=== PATIENT | female | born 1950 | race Caucasian/White ===

== ENCOUNTER → 2023-11-19 08:06 | Outpatient (REF) | payer OTHER, SELFPAY ==
[2023-11-19 08:48] LABS: % Basophils 0.8 % (0-2); % Eosinophils 2.5 % (0-6); % Immature Granulocytes 0.3 % (0-0.5); % Lymphocytes 24.8 % (20.5-51.1); % Monocytes 8.2 % (1.7-9.3); % Neutrophils 63.4 % (42.2-75.2); Absolute Eosinophils 0.1 10^3/uL (0-0.7); Absolute Lymphocytes 0.9 10^3/uL (1.2-3.4); Absolute Monocytes 0.3 10^3/uL (0.1-0.6); Absolute Neutrophils 2.3 10^3/uL (1.4-6.5); Hematocrit 40.8 % (37.0-47.0); Hemoglobin 14.2 g/dL (12.0-16.0); Mean Corp Hgb Conc. 34.8 g/dL (33.0-37.0); Mean Corpuscular Hgb 32.1 pg (27.0-31.0); Mean Corpuscular Volume 92.3 fL (81.0-99.0); Mean Platelet Volume 9.6 fL (7.4-10.4); Nucleated Red Blood Cells % 0 %; Platelet Count 190 10^3/uL (130-400); Red Blood Cell Count 4.42 10^6/uL (4.20-5.40); Red Cell Dist. Width 11.9 % (11.5-14.5); White Blood Cell Count 3.6 10^3/uL (4.8-10.8)
[2023-11-19 09:54] LABS: ALT (SGPT) 16 U/L (0-35); AST (SGOT) 34 U/L (14-36); Albumin 4.1 g/dl (3.5-5.0); Alkaline Phosphatase 96 U/L (38-126); Blood Urea Nitrogen 15 mg/dl (7-17); Calcium 9.1 mg/dl (8.4-10.2); Carbon Dioxide 34 mmol/L (22-30); Chloride 97 mmol/L (98-107); Glucose 95 mg/dl (70-99); HDL Cholesterol 64 mg/dl; LDL Cholesterol, Calculated 32 mg/dl; Potassium 3.6 mmol/L (3.5-5.1); Sodium 132 mmol/L (135-145); Total Bilirubin 0.8 mg/dl (0.2-1.3); Total Cholesterol 109 mg/dl (50-199); Total Protein 6.2 g/dl (6.3-8.2); Triglyceride 66 mg/dl (10-149); Very Low Density Lipoprotein 13 mg/dl (0-30); eGFR > 60.00
[2023-11-19 10:55] LABS: TSH Reflex To Free T4 1.32 uIU/ml (0.47-4.68)
== END ==
LOC: REG 08:06
PROVIDERS: ATTENDING PHYSICIAN Physician Assistant
DX: M81.0 Age-related osteoporosis without current pathological fracture (principal); R09.89 Other specified symptoms and signs involving the circulatory and respiratory systems; E78.00 Pure hypercholesterolemia, unspecified; R01.1 Cardiac murmur, unspecified; Z86.73 Personal history of transient ischemic attack (TIA), and cerebral infarction without residual deficits
CPT/HCPCS: 36415; 80053; 80061; 84443; 85025

== ENCOUNTER → 2023-12-17 11:23 | Outpatient (REF) | payer OTHER, SELFPAY ==
[2023-12-17 12:22] LABS: ALT (SGPT) 17 U/L (0-35); AST (SGOT) 36 U/L (14-36); Albumin 4.3 g/dl (3.5-5.0); Alkaline Phosphatase 92 U/L (38-126); Blood Urea Nitrogen 15 mg/dl (7-17); Calcium 9.1 mg/dl (8.4-10.2); Carbon Dioxide 30 mmol/L (22-30); Chloride 95 mmol/L (98-107); Glucose 83 mg/dl (70-99); Potassium 4.6 mmol/L (3.5-5.1); Sodium 129 mmol/L (135-145); Total Bilirubin 0.8 mg/dl (0.2-1.3); Total Protein 6.5 g/dl (6.3-8.2); eGFR > 60.00
== END ==
LOC: REG 11:23
PROVIDERS: ATTENDING PHYSICIAN Physician Assistant
DX: E87.1 Hypo-osmolality and hyponatremia (principal)
CPT/HCPCS: 36415; 80053

== ENCOUNTER → 2024-02-04 14:13 | Outpatient (REF) | payer OTHER, SELFPAY ==
[2024-02-04 15:49] LABS: ALT (SGPT) 14 U/L (0-35); AST (SGOT) 32 U/L (14-36); Alkaline Phosphatase 93 U/L (38-126); Blood Urea Nitrogen 17 mg/dl (7-17); Calcium 9.3 mg/dl (8.4-10.2); Carbon Dioxide 32 mmol/L (22-30); Chloride 97 mmol/L (98-107); Glucose 71 mg/dl (70-99); Sodium 135 mmol/L (135-145); Total Bilirubin 0.6 mg/dl (0.2-1.3); Total Protein 6.1 g/dl (6.3-8.2); eGFR > 60.00
== END ==
LOC: REG 14:13
PROVIDERS: ATTENDING PHYSICIAN Physician Assistant; REFERRING PHYSICIAN Internal Medicine Cardiovascular Disease
DX: E87.1 Hypo-osmolality and hyponatremia (principal)
CPT/HCPCS: 36415; 80053

== ENCOUNTER → 2024-02-20 11:32 | Outpatient (REF) | payer OTHER, SELFPAY ==
[2024-02-20 12:54] LABS: Blood Urea Nitrogen 18 mg/dl (7-17); Calcium 9.3 mg/dl (8.4-10.2); Carbon Dioxide 33 mmol/L (22-30); Chloride 99 mmol/L (98-107); Glucose 85 mg/dl (70-99); Potassium 3.9 mmol/L (3.5-5.1); Sodium 137 mmol/L (135-145); eGFR > 60.00
== END ==
LOC: REG 11:32
PROVIDERS: ATTENDING PHYSICIAN Internal Medicine Cardiovascular Disease; FAMILY PHYSICIAN Physician Assistant
DX: I10 Essential (primary) hypertension (principal)
CPT/HCPCS: 36415; 80048

== ENCOUNTER → 2024-06-15 09:04 | Outpatient (REF) | payer OTHER, SELFPAY | LOC: RCS 09:04 | PROVIDERS: ATTENDING PHYSICIAN Internal Medicine Cardiovascular Disease; FAMILY PHYSICIAN Physician Assistant | DX: I35.0 Nonrheumatic aortic (valve) stenosis (principal) | CPT/HCPCS: 93306 ==

== ENCOUNTER → 2024-10-27 06:49 | Outpatient (REF) | payer OTHER, SELFPAY ==
[2024-10-27 07:57] LABS: % Basophils 0.5 % (0-2); % Eosinophils 2.5 % (0-6); % Immature Granulocytes 0.3 % (0-0.5); % Lymphocytes 23.2 % (20.5-51.1); % Neutrophils 64.5 % (42.2-75.2); Absolute Eosinophils 0.1 10^3/uL (0-0.7); Absolute Lymphocytes 0.9 10^3/uL (1.2-3.4); Absolute Monocytes 0.3 10^3/uL (0.1-0.6); Absolute Neutrophils 2.4 10^3/uL (1.4-6.5); Hematocrit 43.2 % (37.0-47.0); Hemoglobin 14.6 g/dL (12.0-16.0); Mean Corp Hgb Conc. 33.8 g/dL (33.0-37.0); Mean Corpuscular Hgb 31.7 pg (27.0-31.0); Mean Corpuscular Volume 93.9 fL (81.0-99.0); Nucleated Red Blood Cells % 0 %; Platelet Count 165 10^3/uL (130-400); Red Cell Dist. Width 12.2 % (11.5-14.5); White Blood Cell Count 3.7 10^3/uL (4.8-10.8)
[2024-10-27 08:31] LABS: ALT (SGPT) 17 U/L (0-35); AST (SGOT) 33 U/L (14-36); Albumin 4.2 g/dl (3.5-5.0); Alkaline Phosphatase 96 U/L (38-126); Blood Urea Nitrogen 15 mg/dl (7-17); Calcium 9.2 mg/dl (8.4-10.2); Carbon Dioxide 35 mmol/L (22-30); Chloride 96 mmol/L (98-107); Glucose 94 mg/dl (70-99); HDL Cholesterol 60 mg/dl; LDL Cholesterol, Calculated 38 mg/dl; Potassium 3.9 mmol/L (3.5-5.1); Sodium 139 mmol/L (135-145); Total Bilirubin 0.8 mg/dl (0.2-1.3); Total Cholesterol 113 mg/dl (50-199); Total Protein 6.4 g/dl (6.3-8.2); Triglyceride 75 mg/dl (10-149); Very Low Density Lipoprotein 15 mg/dl (0-30); eGFR > 60.00
[2024-10-29 13:48] LABS: Lipoprotein a (Lp a) 27 mg/dL (<=29)
== END ==
LOC: REG 06:49
PROVIDERS: ATTENDING PHYSICIAN Physician Assistant; OTHER PHYSICIAN Internal Medicine Cardiovascular Disease
DX: Z86.73 Personal history of transient ischemic attack (TIA), and cerebral infarction without residual deficits (principal); E78.00 Pure hypercholesterolemia, unspecified; I10 Essential (primary) hypertension; I35.0 Nonrheumatic aortic (valve) stenosis; R26.89 Other abnormalities of gait and mobility
CPT/HCPCS: 36415; 80053; 80061; 83695; 85025

== ENCOUNTER → 2024-11-17 13:59 | Outpatient (REF) | payer OTHER, SELFPAY | LOC: WDC 13:59 | PROVIDERS: ATTENDING PHYSICIAN Physician Assistant | DX: Z12.31 Encounter for screening mammogram for malignant neoplasm of breast (principal) | CPT/HCPCS: 77063; 77067 ==

== ENCOUNTER 2025-02-09 10:03 | Outpatient (RCR) | payer OTHER, SELFPAY | END 2025-02-09 23:59 | disposition home or self-care (01) | LOC: RPT 10:03 | PROVIDERS: ATTENDING PHYSICIAN Physician Assistant | DX: R26.89 Other abnormalities of gait and mobility (principal); Z73.6 Limitation of activities due to disability | CPT/HCPCS: 97110; 97162 ==

== ENCOUNTER 2025-02-23 10:02 | Outpatient (RCR) | payer OTHER, SELFPAY | END 2025-02-23 23:59 | disposition home or self-care (01) | LOC: RPT 10:02 | PROVIDERS: ATTENDING PHYSICIAN Physician Assistant | DX: R26.89 Other abnormalities of gait and mobility (principal); Z73.6 Limitation of activities due to disability | CPT/HCPCS: 97110 ==

== ENCOUNTER → 2025-03-18 15:52 | Outpatient (REF) | payer OTHER, SELFPAY ==
[2025-03-18 16:50] LABS: Blood Urea Nitrogen 19 mg/dl (7-17); Calcium 9.3 mg/dl (8.4-10.2); Carbon Dioxide 31 mmol/L (22-30); Chloride 100 mmol/L (98-107); Glucose 99 mg/dl (70-99); Potassium 4.2 mmol/L (3.5-5.1); Sodium 135 mmol/L (135-145); eGFR > 60.00
[2025-03-18 16:59] LABS: NT-proBNP 558 pg/ml
== END ==
LOC: REG 15:52
PROVIDERS: ATTENDING PHYSICIAN Internal Medicine Cardiovascular Disease; FAMILY PHYSICIAN Physician Assistant
DX: I35.0 Nonrheumatic aortic (valve) stenosis (principal); I10 Essential (primary) hypertension
CPT/HCPCS: 80048; 83880

== ENCOUNTER → 2025-06-27 09:44 | Outpatient (REF) | payer OTHER, SELFPAY | LOC: RCS 09:44 | PROVIDERS: ATTENDING PHYSICIAN Internal Medicine Cardiovascular Disease; FAMILY PHYSICIAN Physician Assistant | DX: I35.0 Nonrheumatic aortic (valve) stenosis (principal) | CPT/HCPCS: 93306 ==

== ENCOUNTER → 2025-08-12 10:42 | Outpatient (REF) | payer OTHER, SELFPAY ==
[2025-08-12 12:18] LABS: Hematocrit 41.5 % (37.0-47.0); Hemoglobin 13.7 g/dL (12.0-16.0); Mean Corp Hgb Conc. 33.0 g/dL (33.0-37.0); Mean Corpuscular Volume 94.1 fL (81.0-99.0); Nucleated Red Blood Cells % 0 %; Platelet Count 188 10^3/uL (130-400); Red Cell Dist. Width 12.6 % (11.5-14.5)
[2025-08-12 13:26] LABS: ALT (SGPT) 16 U/L (0-35); AST (SGOT) 28 U/L (14-36); Albumin 4.4 g/dl (3.5-5.0); Alkaline Phosphatase 101 U/L (38-126); Blood Urea Nitrogen 13 mg/dl (7-17); Calcium 9.2 mg/dl (8.4-10.2); Carbon Dioxide 34 mmol/L (22-30); Chloride 97 mmol/L (98-107); Glucose 75 mg/dl (70-99); Potassium 4.4 mmol/L (3.5-5.1); Sodium 136 mmol/L (135-145); Total Protein 7.0 g/dl (6.3-8.2); eGFR > 60.00
== END ==
LOC: REG 10:42
PROVIDERS: ATTENDING PHYSICIAN Internal Medicine Cardiovascular Disease; FAMILY PHYSICIAN Physician Assistant
DX: I10 Essential (primary) hypertension (principal)
CPT/HCPCS: 36415; 80053; 85025

== ENCOUNTER 2025-08-26 07:05 | Day surgery (SDC) | payer OTHER, SELFPAY ==
--- NOTE | 2025-08-25 10:16 | CONSULT.STRU ---
Consultation
-
Date/Time Consultation Requested: 08/26/2025
Date/Time Consultation Performed: 08/26/2025
Requesting Provider: Aroldo Roman MD
Performing Provider: Deann Mary DNP, CRNP
Reason for Consultation: /TAVR
Patient History
Physicians
Family Physician: La Almendarez PA-c
Outpatient Travel Rn: Junior Frank MD
Primary Travel Rn: Junior Frank MD
History of Present Illness
Ms. Petit is a very pleasant 75 yof with a past medical history significant for aortic stenosis, CVA, HTN, and hypercholesterolemia, ocular migraines. Her echocardiogram from 06/27/2025 is notable for EF 63%, AV P/M 84/50, DI 0.2, GEORGINA 0.85, trace
AI, trace MR, mild posterior valve prolapse, mild TR, PAP 29.. From a symptomatology standpoint, patient describes GALLO and fatigue. Discussed the pathophysiology and treatment options of aortic stenosis including SAVR and TAVR, Explained the
evaluation process comprising of lab work, CT scan, CT surgical consult, dental clearance, and a heart team discussion. TAVR booklet, contact information, prescriptions, and appointments given to patient. Allowed for and answered questions at
bedside.
Past Medical History
Past Medical History: CVA/TIA, Hypercholesterolemia, Valvular Disease (aortic stenosis) and Other (osteopenia, fx (L) hip, fx (R) humerus, ocular migraines)
Past Surgical History
Past Surgical History: Orthopedic ((L)THR)
Dental History
Dr. Parks
Family History
Mother: Cause of (stroke)
Father: Cause of (cancer)
Family Medical History: Cancer
Social History
Alcohol: Occasional
Drug: None
Tobacco: Non-Smoker
Personal:
Living: With Spouse
Allergies
Allergy/AdvReac Type Severity Reaction Status Date / Time
Iodinated Contrast Media Allergy Hives Verified 06/08/23 12:07
LOBSTER Allergy RASH ON Uncoded 06/08/23 09:30
HANDS/CONTACT
DERMATITIS
Home Medications
�Medication �Instructions �Recorded �Confirmed �Type
hydrochlorothiazide 12.5 mg tablet 12.5 mg PO Q48H Fluid 06/08/23 06/08/23 History
Retention/Swelling
aspirin 81 mg chewable tablet 81 mg PO DAILY #30 tabs 06/09/23 Rx
atorvastatin 20 mg tablet 20 mg PO QPM #30 tabs 06/09/23 Rx
clopidogrel 75 mg tablet 75 mg PO DAILY #19 tabs 06/09/23 Rx
STS%
STS %: 3.16
Review of Systems
-
History Source: Patient
General: Reports Fatigue
HEENT: Reports No Symptoms
Respiratory: Reports GLALO
Cardiac: Reports No Symptoms
Abdomen/GI: Reports No Symptoms
: Reports No Symptoms
Musculoskeletal: Reports No Symptoms
Skin: Reports No Symptoms
Neurological: Reports No Symptoms
Vascular: Reports No Symptoms
Physical Exam
Labs
08/12/2025
HH: 13.7/41.5
WBC: 3.9
Plt: 188K
Bun/Cr: 13/0.6
GFR>60
Diagnostic Studies
Echocardiogram 06/27/2025
SUMMARY
1. Left ventricular ejection fraction is normal with an ejection fraction of 63 % by Valenzuela's biplane method of discs.
2. Calcified trileaflet aortic valve with decreased leaflet excursion. Severe aortic stenosis. dimensionless index of 0.2. Mean pressure gradient of 50 mmHg and aortic valve area 0.85/cm² using LVOT diameter of 2.3 cm. Trace aortic insufficiency.
3. Mild concentric left ventricular hypertrophy.
Procedure Type:�Isolated AVR
Perioperative Outcome Estimate %
Operative Mortality 3.16%
Morbidity & Mortality 10.2%
Stroke 1.53%
Renal Failure 1.3%
Reoperation 4.21%
Prolonged Ventilation 4.58%
Deep Sternal Wound Infection 0.036%
Long Hospital Stay (>14 days) 5.48%
Short Hospital Stay (<6 days)* 36.2%
Exam
General: Well Developed, Well Nourished and No Apparent Distress
HEENT: Normocephalic
Respiratory: Clear
Cardiac: Murmur (III/ BEATA)
GI: Soft, Non Tender and Non Distended
Rectal: Deferred by Provider
Skin: Warm and Dry
Neuro: Awake, Alert, Oriented and AO x 3
Psych: Calm
Assessment / Plan
-
Aortic Stenosis
Continue with TAVR evaluation
Trend creatinine after contrast administration
TAVR CT scan (premedicate for contrast allergy, Rx given w/ refills)
CT surgical consult
Frailty testing and KCCQ12 at consult
Continue aspirin
Dental clearance
Heart team discussion
Data Reviewed
-
Gauge And Weigh Machine Adjuster: Report Reviewed by me and Discussed with Physician
Echo: Report Reviewed by me and Discussed with Physician
Labs: Labs Reviewed by me
Old Records: Reviewed
Critical Care Time (in minutes): 45
[2025-08-26] VITALS (12 sets, daily range): BP systolic 96–163; BP diastolic 54–96; BMI 23.8
[2025-08-26 09:16] LABS: ACT-LR - POC 247 Seconds (116-155)
[2025-08-26] MEDS: NSS 1000 IV (10:15)
--- NOTE | 2025-08-26 18:46 | ITS.CL.CATH ---
Ingot Buggy Operator - Catheterization
Cardiac Catheterization
Procedure Report:
LEFT HEART CATHETERIZATION
Date of Procedure: August 26, 2025
Referring: Dr. Junior Frank
PROCEDURES:
1. Coronary angiography
2. Hemodynamic assessment of LAD with a Laurel Omni wire with the iFR serially measuring below the ischemic threshold at 0.76, 0.76, and 0.77. The Omni wire normalized to a Pd/Pa of 1.0 back at the guide catheter
INDICATION: Symptomatic aortic stenosis and decline in functional capacity
NOTE: The patient reports an allergy to iodine contrast but during the procedure stated that anaphylaxis occurred with IV gadolinium during an MRI. Not sure if she has true iodine allergy
ACCESS: Right radial artery, 6 German sheath
HEMODYNAMICS : (mmHg)
AO (s/d) : 120/74, 94
CORONARY FINDINGS
DOMINANCE: Right
LEFT MAIN: Normal
LEFT ANTERIOR DESCENDIN% ostial LAD and 50% mid LAD beyond the first diagonal branch. The remainder of the LAD has minor irregularities. Hemodynamic assessment of the LAD was undertaken with a Laurel Omni wire. The IFR in the LAD measured
serially below the ischemic threshold at 0.76, 0.76, and 0.77 with normalization back at the guide catheter with a Pd/Pa of 1.0 confirming no baseline draft
CIRCUMFLEX: The circumflex is a large-caliber nondominant vessel supplying 2 obtuse marginal branches. Minor irregularities are present
RIGHT CORONARY ARTERY: Normal
HEMODYNAMIC ASSESSMENT OF THE LAD WITH A VOLCANO OMNI WIRE: The origin of the left main was cannulated with a 6 Fr JL 4 guide catheter. Intravenous heparin was administered and the ACT was followed during the procedure. Two hundred micrograms of
intracoronary nitroglycerin was given through the guide catheter. A Laurel Omni wire was advanced to the guide catheter tip and normalized to guide catheter pressure. The Omni wire was then carefully manipulated across the stenosis at the ostium
of the LAD and in the mid LAD. Surprisingly, the iFR serially measured below the ischemic threshold at 0.76, 0.76, and 0.77. A slow pullback was performed and the most significant portion of the step up occurred in the mid LAD near the origin of
the diagonal branch, however, a step-up was also noted at the ostium of the LAD. The iFR in the left main was 1.0 as was the Pd/Pa
SEDATION: 42 minutes of procedural sedation was utilized. An independent medical doctor nuclear medicine was present to assist with and help manage the patient's level of consciousness and physiologic status.
RADIATION SUMMARY: Fluoro Time (min): 11.4, Dose (mGy): 279, DAP (Gy.cm2) : 19.6
Closure Device: TR band
CONCLUSIONS
1. Known severe aortic stenosis
2. Ostial and mid LAD stenoses were shown to be hemodynamically significant with the iFR serially measuring well below the ischemic threshold at 0.76, 0.76, and 0.77.
RECOMMENDATIONS
1. CT chest and follow-up with Dr. Edmond as scheduled to discuss treatment options
Copy to: Dr. Junior Frank
== END 2025-08-26 14:20 | disposition home or self-care (01) ==
LOC: CATH 07:05
PROVIDERS: ATTENDING PHYSICIAN Internal Medicine Interventional Cardiology; FAMILY PHYSICIAN Physician Assistant; OTHER PHYSICIAN Internal Medicine Cardiovascular Disease
DX: I35.2 Nonrheumatic aortic (valve) stenosis with insufficiency (principal); Z91.041 Radiographic dye allergy status; E78.00 Pure hypercholesterolemia, unspecified; I11.9 Hypertensive heart disease without heart failure; M85.80 Other specified disorders of bone density and structure, unspecified site; Z79.02 Long term (current) use of antithrombotics/antiplatelets; Z80.9 Family history of malignant neoplasm, unspecified; Z82.3 Family history of stroke; Z86.73 Personal history of transient ischemic attack (TIA), and cerebral infarction without residual deficits; Z91.013 Allergy to seafood; Z79.82 Long term (current) use of aspirin
CPT/HCPCS: 93799; 99152; 99153; 93454; C1769; C1894; Q9967

== ENCOUNTER → 2025-08-31 11:20 | Outpatient (REF) | payer OTHER, SELFPAY ==
[2025-08-31 13:34] LABS: Blood Urea Nitrogen 14 mg/dl (7-17); Calcium 9.1 mg/dl (8.4-10.2); Carbon Dioxide 34 mmol/L (22-30); Chloride 97 mmol/L (98-107); Glucose 85 mg/dl (70-99); Potassium 3.6 mmol/L (3.5-5.1); Sodium 133 mmol/L (135-145); eGFR > 60.00
== END ==
LOC: REG 11:20
PROVIDERS: ATTENDING PHYSICIAN Nurse Practitioner Acute Care
DX: I35.0 Nonrheumatic aortic (valve) stenosis (principal)
CPT/HCPCS: 36415; 80048

== ENCOUNTER → 2025-09-05 09:29 | Outpatient (REF) | payer OTHER, SELFPAY | LOC: RAD 09:29 | PROVIDERS: ATTENDING PHYSICIAN Nurse Practitioner Acute Care | DX: I35.0 Nonrheumatic aortic (valve) stenosis (principal) | CPT/HCPCS: 74174; 75572; Q9967 ==

== ENCOUNTER 2025-09-30 04:58 | Inpatient (IN) | payer OTHER, SELFPAY ==
[2025-09-20 12:18] VITALS: BMI 23.9
[2025-09-20 13:09] LABS: Hematocrit 40.0 % (37.0-47.0); Hemoglobin 13.5 g/dL (12.0-16.0); Mean Corp Hgb Conc. 33.8 g/dL (33.0-37.0); Mean Corpuscular Volume 93.7 fL (81.0-99.0); Nucleated Red Blood Cells % 0 %; Platelet Count 182 10^3/uL (130-400); Red Cell Dist. Width 12.8 % (11.5-14.5)
[2025-09-20 13:30] LABS: INR 1.00; PT 13.3 Sec (11.4-14.6)
[2025-09-20 13:35] LABS: ALT (SGPT) 14 U/L (0-35); AST (SGOT) 27 U/L (14-36); Albumin 4.3 g/dl (3.5-5.0); Alkaline Phosphatase 99 U/L (38-126); Blood Urea Nitrogen 14 mg/dl (7-17); Calcium 9.0 mg/dl (8.4-10.2); Chloride 98 mmol/L (98-107); Estimated Creatinine Clearance 69 ml/min; Glucose 79 mg/dl (70-99); Potassium 3.5 mmol/L (3.5-5.1); Sodium 135 mmol/L (135-145); Total Protein 6.5 g/dl (6.3-8.2); eGFR > 60.00
[2025-09-20 13:40] LABS: Carbon Dioxide 33 mmol/L (22-30)
[2025-09-20 13:46] LABS: Glycohemoglobin (HgbA1c) 5.7 % (4.0-5.9)
[2025-09-20 13:49] LABS: Urine Character Clear (Clear)
[2025-09-20 14:13] LABS: Urine Squamous Cell 0-2 /LPF (Few); Urine White Cell 0-2 /HPF (0-5)
--- NOTE | 2025-09-20 14:18 | CM ---
Spoke with patient in PATs. We discussed pre-op CABG/AVR teaching including sternal and driving restrictions. Previously independent at baseline, lives with in 2 story home, 1 step to enter. She has a single point cane and a rolling walker
at home but does not use them. She has the CT surgery education book, soap, and instructions. She is agreeable to a follow up visit from the CT transitional care nurses following DC. CM role explained and all questions answered. Plan for CABG/AVR on
09/30/25.
[2025-09-30] VITALS (14 sets, daily range): BP systolic 76–156; BP diastolic 52–87; BMI 23.9
[2025-09-30] MEDS: PROTONIX 40 MG PO (05:35)
[2025-09-30] MEDS: LOPRESSOR 25 MG PO (05:35)
[2025-09-30] MEDS: MAGNESIUM OXIDE 400 MG PO (05:35)
[2025-09-30] MEDS: BACTROBAN 2% OINTMENT 1 APPLIC NASAL ×2 (05:36→20:13)
--- NOTE | 2025-09-30 05:47 | PTCARENOTE ---
Patient admitted to CVICU. Patient confirmed 2 CHG showers and NPO since midnight. Admission questions asked. Med rec performed. Patient clipped and washed w/ CHG. Medications administered per HARSHIL Brunson. Patient oriented to room and
questions encouraged. Awaiting CVOR.
--- NOTE | 2025-09-30 06:35 | W.CVOR.SURPR ---
CVOR Surgeon Immed Pre Op
-
I have examined this patient prior to performance of the scheduled procedure.
The patient's condition is unchanged from the time of the dictated/written History and
Physical and the patient is able to undergo the scheduled procedure.
[2025-09-30 08:01] LABS: ACT+ - POC 126 Seconds (82-134)
[2025-09-30 08:30] LABS: Urine Character Clear (Clear)
--- NOTE | 2025-09-30 09:10 | CM ---
pt in OR today, cm to follow.
[2025-09-30 10:14] LABS: B.E. - POC 1.5 mmol/L; Glucose - POC 100 mg/dl (70-99); HCO3 - POC 26 mmol/L (21-28); Hematocrit - POC 28 % PCV (37-47); Hemodilution- POC No; Hemoglobin Calculated - POC 9.6; Ionized Calcium - POC 1.09 mmol/L (1.15-1.33); Lactate - POC < 0.30 mmol/L (0.36-0.75); O2 Saturation %Calculated-POC 99.9 % (94-98); PCO2 - POC 41 mmHg (35-48); PO2 - POC 262 mmHg (83-108); POC Comment PRE; Potassium - POC 2.9 mmol/L (3.5-5.1); Sodium - POC 142 mmol/L (136-145); Specimen Type - POC Arterial; pH - POC 7.42 (7.35-7.45)
[2025-09-30 10:15] LABS: ACT+ - POC > 1003 Seconds (82-134)
[2025-09-30 10:25] LABS: B.E. - POC 8.3 mmol/L; Glucose - POC 103 mg/dl (70-99); HCO3 - POC 30 mmol/L (21-28); Hematocrit - POC 25 % PCV (37-47); Hemodilution- POC Yes; Hemoglobin Calculated - POC 8.4; Ionized Calcium - POC 0.91 mmol/L (1.15-1.33); Lactate - POC 0.86 mmol/L (0.36-0.75); O2 Saturation %Calculated-POC 100.0 % (94-98); PCO2 - POC 32 mmHg (35-48); PO2 - POC 457 mmHg (83-108); POC Comment CPB; Potassium - POC 3.1 mmol/L (3.5-5.1); Sodium - POC 138 mmol/L (136-145); Specimen Type - POC Arterial; pH - POC 7.59 (7.35-7.45)
[2025-09-30 10:56] LABS: B.E. - POC 5.3 mmol/L; Glucose - POC 114 mg/dl (70-99); HCO3 - POC 28 mmol/L (21-28); Hematocrit - POC 26 % PCV (37-47); Hemodilution- POC Yes; Hemoglobin Calculated - POC 8.8; Ionized Calcium - POC 0.92 mmol/L (1.15-1.33); Lactate - POC 1.47 mmol/L (0.36-0.75); O2 Saturation %Calculated-POC 99.9 % (94-98); PCO2 - POC 30 mmHg (35-48); PO2 - POC 248 mmHg (83-108); POC Comment CPB; Potassium - POC 3.2 mmol/L (3.5-5.1); Sodium - POC 141 mmol/L (136-145); Specimen Type - POC Arterial; pH - POC 7.57 (7.35-7.45)
[2025-09-30 11:07] LABS: ACT+ - POC > 1003 Seconds (82-134)
[2025-09-30 11:07] LABS: ACT+ - POC > 1003 Seconds (82-134)
[2025-09-30 11:26] LABS: B.E. - POC 4.1 mmol/L; Glucose - POC 122 mg/dl (70-99); HCO3 - POC 28 mmol/L (21-28); Hematocrit - POC 25 % PCV (37-47); Hemodilution- POC Yes; Hemoglobin Calculated - POC 8.5; Ionized Calcium - POC 0.90 mmol/L (1.15-1.33); Lactate - POC 1.79 mmol/L (0.36-0.75); O2 Saturation %Calculated-POC 99.9 % (94-98); PCO2 - POC 37 mmHg (35-48); PO2 - POC 263 mmHg (83-108); POC Comment CPB; Potassium - POC 4.2 mmol/L (3.5-5.1); Sodium - POC 140 mmol/L (136-145); Specimen Type - POC Arterial; pH - POC 7.49 (7.35-7.45)
[2025-09-30 11:54] LABS: B.E. - POC 3.7 mmol/L; Glucose - POC 133 mg/dl (70-99); HCO3 - POC 28 mmol/L (21-28); Hematocrit - POC 26 % PCV (37-47); Hemodilution- POC Yes; Hemoglobin Calculated - POC 8.8; Ionized Calcium - POC 0.98 mmol/L (1.15-1.33); Lactate - POC 1.86 mmol/L (0.36-0.75); O2 Saturation %Calculated-POC 99.9 % (94-98); PCO2 - POC 41 mmHg (35-48); PO2 - POC 267 mmHg (83-108); POC Comment CPB; Potassium - POC 3.3 mmol/L (3.5-5.1); Sodium - POC 143 mmol/L (136-145); Specimen Type - POC Arterial; pH - POC 7.44 (7.35-7.45)
[2025-09-30 12:13] LABS: ACT+ - POC 1004 Seconds (82-134)
[2025-09-30 12:20] LABS: B.E. - POC 4.2 mmol/L; Glucose - POC 133 mg/dl (70-99); HCO3 - POC 28 mmol/L (21-28); Hematocrit - POC 25 % PCV (37-47); Hemodilution- POC Yes; Hemoglobin Calculated - POC 8.6; Ionized Calcium - POC 0.95 mmol/L (1.15-1.33); Lactate - POC 1.85 mmol/L (0.36-0.75); O2 Saturation %Calculated-POC 99.9 % (94-98); PCO2 - POC 36 mmHg (35-48); PO2 - POC 296 mmHg (83-108); POC Comment WARM; Potassium - POC 3.3 mmol/L (3.5-5.1); Sodium - POC 144 mmol/L (136-145); Specimen Type - POC Arterial; pH - POC 7.50 (7.35-7.45)
[2025-09-30 12:31] LABS: ACT+ - POC 657 Seconds (82-134)
[2025-09-30 12:52] LABS: ACT+ - POC > 1003 Seconds (82-134)
[2025-09-30 12:52] LABS: ACT+ - POC > 1003 Seconds (82-134)
[2025-09-30 13:00] LABS: B.E. - POC 2.6 mmol/L; Glucose - POC 136 mg/dl (70-99); HCO3 - POC 26 mmol/L (21-28); Hematocrit - POC 25 % PCV (37-47); Hemodilution- POC Yes; Hemoglobin Calculated - POC 8.6; Ionized Calcium - POC 0.90 mmol/L (1.15-1.33); Lactate - POC 2.15 mmol/L (0.36-0.75); O2 Saturation %Calculated-POC 99.9 % (94-98); PCO2 - POC 34 mmHg (35-48); PO2 - POC 250 mmHg (83-108); Potassium - POC 3.4 mmol/L (3.5-5.1); Sodium - POC 143 mmol/L (136-145); Specimen Type - POC Arterial; pH - POC 7.49 (7.35-7.45)
[2025-09-30 13:04] LABS: ACT+ - POC 131 Seconds (82-134)
--- NOTE | 2025-09-30 13:44 | W.IMMPOSTOP ---
Addendum entered and electronically signed by Michael Edmond MD 09/30/25 15:50:
[id number]
Original Note:
Surgical Immed Post Op Note
-
CARDIAC SURGERY OPERATIVE NOTE:
Preoperative Dx:
Severe aortic stenosis (P/M: 84.3/50.0, GEORGINA 0.85, Trace AI)
Single vessel CAD (LAD)
Postoperative Dx:
Same
Functional bicuspid (RCC/NCC fusion) AV w/ very bulky leaflet and annular calcifications
Procedures:
1) Median sternotomy
2) Takedown of ANGIE (narrow pedicle)
3) CABG x 1 (ANGIE to LAD)
4) ELAA (35mm AtriClip)
5) AVR (#25 Inspiris Resilia)
Surgeon:
Michael Edmond M.D.
Assistants:
Mabel Llanes P.A.-C.; physicians assistant throughout
Nicolás Resendiz PCt.-C.; [id number] sternotomy closure
Anesthesia:
Kris Monique M.D. and Percy RosasN.A.
Perfusion:
Jennifer Stern C.C.P.; XC: 122min, CPB 165min
Findings:
ANGIE was a healthy conduit w/ brisk blood flows, there was minor increased wall thickness and slight friability (ELD 2.75)
LAD was visible on the epicardial surface, normal masters at midpoint anastomosis (ELD 3.25) - anastomosis redo x 1 2' to ANGIE intimal tear at toe (tear resected; re-anastomosis w/o incident)
SHEA was small w/ 'windsock' morphology - successfully occluded at base w/ 35mm AtriClip - confirmed on postop ARMIN
AV was functionally bicuspid w/ complete RCC and NCC fusion (Seivers TYPE 1). There were profoundly bulky calcifications on all leaflets w/ a large bar of calcium extending along the fused commissure. These calcifications extended to the annulus
circumferentially. I was pleased w/ the annular appearance after complete debridement. LM and RM coronary arteries w/ annular height similar to preoperative imaging.
#25 Inspiris Resilia AVR placed w/ 15 interrupted, pledgetted valve sutures & CorKnots
Post-ARMIN: Normal LVEF @ 60-65 w/ significant LVH and small cavity size, normal RV function. Well-seated AVR w/ mean gradient 4mmHg; trace PVL only noted on transgastric view. SHEA confirmed excluded
Transfusions:
1U PRBC
Complications:
Pt. currently pacer dependent - baseline HR NSR in 50s
Implants:
Wright Inspiris Resilia 25mm MODEL [id number], SN: [id number]
AtiCure, AtriClip 35mm,
Epicardial bi-polar V-wire x 1
Epicardial A-wires x 2 (sutured)
CT x 4 (B/L pleural, inferior mediastinal, superior mediastinal)
Sternal 'X' plate w/ 8 - 12mm screws
Sternal 'Square' place w/ 4 - 10mm screws
Condition:
70 A-V paced, 126/48, 33/19, CVP 13.
GTTS: dobutamine 3, levophed 5, precedex 0.5, insulin 0.5
Stable/guarded to CVICU
CTs w/ scant drainage intraoperatively (M: 0, P: 5)
--- NOTE | 2025-09-30 13:53 | CON.INTV ---
Consultation
Consultation Request
Date/Time Consultation Requested: 09/30/2025
Date/Time Consultation Performed: 09/30/2025
Medical History
-
Chief Complaint: Dyspnea
History of Present Illness:
Patient is a 75-year-old female with known history of aortic stenosis who recently had an echocardiogram with severe aortic stenosis as well as coronary artery disease on left heart catheterization. Patient was subsequently referred to Cardio
thoracic surgery for further recommendations. Surgical aortic valve replacement and coronary artery bypass graft was advised. Postprocedure, patient was admitted to CVICU and youth manager consultation was requested for further input.
Past Medical History
Migraine headaches
Moderate aortic stenosis
CVA 2022
Past Surgical History: Reports Other
Additional Past Surgical History:
Left total hip replacement -March 2018
Social History
Tobacco: Non-smoker
Alcohol: None
Drug: None
Personal:
Living: With Family
Family History
Family History: Other (Mother had a stroke at the age of 77)
Allergies / Home Medications
Allergies
Allergy/AdvReac Type Severity Reaction Status Date / Time
Iodinated Contrast Media Allergy Severe ANAPHYLAXIS/DIFFICULTY Verified 09/16/25 09:22
SWALLOWING/EXCESS
SALIVA/ORAL
TREMORS
lobster Allergy RASH ON Verified 09/29/25 08:09
HANDS/CONTACT
DERMATITIS
Home Medications
�Medication �Instructions �Recorded �Confirmed �Last Taken �Type
aspirin 81 mg chewable tablet 81 mg PO DAILY #30 tabs 06/09/23 09/30/25 09/29/25 08:00 Rx
atorvastatin 20 mg tablet 20 mg PO QPM #30 tabs 06/09/23 09/30/25 09/29/25 19:00 Rx
furosemide 20 mg tablet 20 mg PO .PRN/20MG-40MG DAILY PRN 08/26/25 09/30/25 09/29/25 08:00 History
EDEMA/FLUID RETENTION
Review of Systems
-
Unable to Obtain full review of systems at this time due to: Patient Intubation
Vitals / Labs / Diagnostic Testing
Vital Signs
Temp Pulse Resp BP Pulse Ox
97.5 F 65 16 147/83 99
09/30/25 05:23 09/30/25 05:35 09/30/25 05:23 09/30/25 05:35 09/30/25 05:23
Lab Data
09/20/25 12:28
09/20/25 12:28
Diagnostic Testing:
Physical Exam
-
HEENT: Normocephalic
Cardiovascular: S1/S2
Respiratory: Clear
GI: Soft and Non Distended
Neurology: Other (Sedated)
Skin: Warm
General: Comfortable
Assessment
-
Patient is a 75 y/o female with severe aortic stenosis, S/p SAVR, CABG and ELAA, POD # 0
Titrate off pressors per protocol, MAP of 105, currently dobutamine infusing at 3, Levophed at 1.
ECHO reviewed with normal function
PA catheter readings reviewed, , mean of 19.
Management of chest tubes per primary service, no airleak noted
Intubated/sedated, initiate SAT when able, Precedex currently infusing
Pain control
RASS goal of 0 to -1
Intubated for procedure, SBT trial when patient able to spontaneously breath
Current vent settings: SIMV, 450/16/40%/5, pressure support of 5.
AB.46/35/171
CXR with mild left lower lobe atelectasis
Extubate per protocol
Maintain supplement oxygen as needed
Prior history of biapical pleuroparenchymal scarring and stable pulmonary nodules
Prior PFTs reviewed, unremarkable
Can add nebulizers if needed
Aspiration precautions
Encouraged incentive spirometry, OOB/ambulation/early mobility
Advance diet as tolerated following extubation
GI prophylaxis: Protonix
Monitor critical I/O's
Perry/chest tube output
Hb/platelets postoperatively, mild drift
Trend CBC for now
Can transfuse if indicated for Hb <7, plt <50 in surgical patients
DVT prophylaxis including SCDs
Insulin protocol initiated and ongoing
Transition to SQ/off as indicated per team
Other medical diagnoses:
- Severe Aortic stenosis
- CAD
- Pulmonary nodule, stable since 2016. Likely benign.
- Mild apical pleural-parenchymal scarring. Spirometry unremarkable without evidence of restriction or obstruction
- H/o CVA (2022)
- HTN
Critical Care time 62 mins -- The patient is admitted for acute critical illness for the treatment of vital organ failure and/or prevention of further life-threatening conditions. Total care includes time spent in review of history, physical exam,
medications, hemodynamic/ventilator parameters, laboratory data, imaging and discussion with house staff, pharmacy, respiratory therapy, flow coordinator, and nursing
Data:
Spirometry 09/2025: FEV1 2.4 L, 122% of predicted, FVC 129% of predicted, FEV1/FVC of 73. Normal spirometry without evidence of obstruction or restriction.
C 08/2025: 1. Known severe aortic stenosis
2. Ostial and mid LAD stenoses were shown to be hemodynamically significant with the iFR serially measuring well below the ischemic threshold at 0.76, 0.76, and 0.77.
ECHO 06/2025: 1. Left ventricular ejection fraction is normal with an ejection fraction of 63 % by Valenzuela's biplane method of discs.
2. Calcified trileaflet aortic valve with decreased leaflet excursion. Severe aortic stenosis. dimensionless index of 0.2. Mean pressure gradient of 50 mmHg and aortic valve area 0.85/cm² using LVOT diameter of 2.3 cm. Trace aortic insufficiency.
3. Mild concentric left ventricular hypertrophy.
CT Chest 08/2025: Mild bilateral apical pleuroparenchymal scarring. Mild dependent atelectasis in the posterior mid to lower lungs.
Thin linear density within the inferior lingula, stable, compatible with scarring.
In the medial aspect of the right middle lobe, there is a well-defined nodular density, measuring 1.2 cm AP by 1.0 cm transverse by 1.1 cm craniocaudal. This nodule is stable dating back to CT of the chest from May 22, 2017, reassuring that it is
benign.
[2025-09-30 14:20] LABS: Glucose - Point of Care 92 mg/dl (70-99)
--- NOTE | 2025-09-30 14:22 | W.PN.UPDATE ---
Update Note
Progress Note Update
75 year old female was electively admitted for AVR, CABG due to functionally bicuspid aortic valve, single vessel coronary disease
IV fluids: 1000
U.O.:� 1400
Blood:� 1 PRBC
Wires:� A + V wires
Drips: Levophed @ 2, Dobutamine (DTX) @ 3, Precedex @ 0.5, Insulin
�
NEURO: sedated, pupils +2mm B/L
RESP: #8OT @24cm> 450/40%/16/5. Lungs clear B/L. 2 mediastinal (15cc on arrival) and R/L pleural (10cc on arrival) chest tubes to -20cm suction. Sanguineous drainage
CV: RRR +S1, S2, no S3, no�rub, no murmur. Dermabond to median sternotomy. RIJ w/[place] locked @ 49cm. PA 27/11; CVP 9
ABD: round, soft, no BS
EXT: no edema, +2/4 DP pulses B/L, no femoral bruit, left radial A-line intact
: Perry with clear yellow urine
�
A/P: POD #0 s/p AVR (#25 Inspiris Resilia), CABG x 1 (ANGIE to LAD), ELAA (35mm AtriClip)
ARMIN: EF�55%, AV 7/4mmHg, tr MR/TR
- wean and extubate
- will need instruction regarding antibiotic prophylaxis for dental and invasive procedures
- wean Levophed, continue DTX
# CAD
- will require ASA, Plavix, high intensity statin
# Acute post-op complete heart block
- AV paced @ 72bpm
-hold rate lowering agents
�
# acute surgical blood loss anemia-expected
- trend CBC
�
�
�
[2025-09-30 14:39] LABS: Hematocrit 31.5 % (37.0-47.0); Hemoglobin 11.3 g/dL (12.0-16.0); Platelet Count 113 10^3/uL (130-400)
[2025-09-30 14:41] LABS: B.E. 1.3 mmol/L; HCO3 24.9 mmol/L (21-28); O2 Saturation % 99.7 % (94-98); PCO2 35 mmHg (32-35); PO2 171 mmHg (83-108); Potassium 4.3 mMOL/L (3.5-5.1); Sodium 138 mMOL/L (136-145)
[2025-09-30 14:42] LABS: O2 Therapy vent
[2025-09-30 14:43] LABS: INR 1.80; PT 21.0 Sec (11.4-14.6)
[2025-09-30 14:44] LABS: APTT 31.7 Sec (23.4-35.0)
[2025-09-30] MEDS: ANCEF 10 IV ×2 (14:46)
[2025-09-30] MEDS: NSS 500 IV (14:46)
[2025-09-30] MEDS: TYLENOL PO (14:46)
[2025-09-30] MEDS: NEURONTIN PO ×2 (14:46→15:41)
[2025-09-30] MEDS: PACERONE PO (14:47)
[2025-09-30] MEDS: CALCIUM GLUCONATE 100 IV ×2 (14:47→19:45)
[2025-09-30 14:48] LABS: Blood Urea Nitrogen 12 mg/dl (7-17); Estimated Creatinine Clearance 69 ml/min; Glucose 88 mg/dl (70-99); Magnesium 3.0 mg/dl (1.6-2.3)
[2025-09-30] MEDS: LR 250 ML IV ×4 (15:00→17:14)
--- NOTE | 2025-09-30 15:00 | PTCARENOTE ---
pt received from CVOR @~1410, sedated on Precedex gtt, RASS -5. core temp 96.2F, bear hugger applied as ordered. 100%AV/V paced on the monitor, DDD 72//10. SBP 90-140s, Levophed gtt titrated as ordered. PAP 20s/10s. CVP~3, CI 1.71, PLASTERER ROUGH aware.
Dobutamine gtt running as ordered. weakly palpable DPs, palpable radials. no edema. pt mechanically ventilated, ETT #8.0, 26cm@lip. SIMV 16, TV 450, PEEP5, FIO2 40%. POX 90-99% POX using ear pulse ox. lungs clear anteriorly. CTx4, no air leak or
crepitus noted. pt abdomen s/n, hypoactive BS. Perry in place. sternal aquacel intact, drainage marked. chest tube site c/d/i. RIJ cordis/swan maintained. L radial Kyle flushed, zeroed, and calibrated. PIV. insulin gtt running as ordered. lab work
drawn, CXR completed. see worklist for VS, I&O, and assessment.
[2025-09-30 15:07] LABS: Glucose - Point of Care 117 mg/dl (70-99)
[2025-09-30] MEDS: DILAUDID 0.5 MG IV ×2 (15:28→21:28)
--- NOTE | 2025-09-30 15:42 | W.PN.CARDCBS ---
Addendum entered and electronically signed by oJsep Yo MD 09/30/25 15:55:
I saw and examined the patient.
The Rug Cutter Helper's note was reviewed and I agree with the note.
Comment:, 75-year-old woman past medical history of severe aortic stenosis and coronary disease who underwent AVR/CABG x 1 earlier today
At the time my evaluation she remained intubated and sedated in the CVICU
Requiring inotrope and pressor support. With low filling pressures based invasive hemodynamics would consider volume resuscitation.
Currently AV paced at 70 bpm. Monitor on telemetry and hopefully will regain campo conduction.
Agree with current cardiac meds�aspirin/Plavix, high intensity statin, beta-hugh and amiodarone
Discussed with nursing
Original Note:
Today's Communication / Plan
-
Continue postop care
Follow rhythm
Impression / Plan
-
Primary American Indian Studies Professor: Dr. Frank
Assessment:
Severe aortic stenosis, functionally bicuspid
Single-vessel CAD of LAD
Status post CABG x 1 SALVADOR to LAD, #25 Inspiris AVR, E SHEA 09/30/2025
History of stroke
Hypertension
Hyperlipidemia
Osteopenia
History of left hip replacement 2017
Echocardiogram 06/27/2025: EF 63%, severe with mean pressure gradient 50 mmHg, GEORGINA 0.85 cm�, trace AI, mild concentric LVH
Plan:
-Status post CABG x 1 SALVADOR to LAD, #25 Inspiris AVR, E SHEA 09/30/2025
-Intubated, sedated
-Presently on dobutamine at 3. CI 1.71
-Currently receiving IV fluid
-Required 1 unit packed red blood cells IntraOp
-Presently A sensed, V paced on telemetry. Postop EKG pending. Will need to follow underlying rhythm as continues to progress postoperatively as presently pacemaker dependent
-Hemoglobin 11.3, platelets 113K
-Continue postoperative care
-Discussed with nursing
Progress Note - American Indian Studies Professor
Subjective
Date of Service: September 30, 2025
Intubated, sedated
Objective
Labs:
09/30/25 14:22
Labs
Hgb 11.3 g/dL (12.0-16.0) L 09/30/25 14:22
Hct 31.5 % (37.0-47.0) L 09/30/25 14:22
Plt Count 113 10^3/uL (130-400) L 09/30/25 14:22
PT 21.0 Sec (11.4-14.6) H 09/30/25 14:22
INR 1.80 09/30/25 14:22
APTT 31.7 Sec (23.4-35.0) 09/30/25 14:22
Sodium 135 mmol/L (135-145) 09/20/25 12:28
Potassium 3.5 mmol/L (3.5-5.1) 09/20/25 12:28
BUN 12 mg/dl (7-17) 09/30/25 14:22
Creatinine 0.5 mg/dL (0.6-1.0) L 09/30/25 14:22
Glucose 88 mg/dl (70-99) 09/30/25 14:22
Vital Signs and I&O:
Vital Signs
Temp Pulse Resp BP Pulse Ox
96.3 F L 72 14 100/74 91
09/30/25 15:00 09/30/25 15:05 09/30/25 15:00 09/30/25 14:50 09/30/25 15:00
Vital Signs
Temp Pulse Resp BP Pulse Ox
96.3 F L 72 14 100/74 91
09/30/25 15:00 09/30/25 15:05 09/30/25 15:00 09/30/25 14:50 09/30/25 15:00
Intake & Output
09/28/25 09/29/25 09/30/25 10/01/25
07:59 07:59 07:59 07:59
Intake Total 493.2 / 493.2
Output Total /
Balance 288.2 / 288.2
Physical Exam
Physical Exam
GEN: No distress, intubated, sedated. On Shanae hugger
HEENT: supple, mmm
LUNGS: CTA bilaterally, no wheezes/rales
CV: Reg, S1/S2, no murmur
ABD: soft,NT/ND
EXT: No cyanosis, clubbing, edema
NEURO: Sedated
SKIN: Warm, pink, dry. No rash. Sternotomy incision C/D/I. CTs in place
[2025-09-30 15:59] LABS: Glucose - Point of Care 90 mg/dl (70-99)
--- NOTE | 2025-09-30 16:00 | PTCARENOTE ---
calcium repleted per protocol. per PIPE CUTTER, ETT repositioned by RT Winters to 23cm@lip, CXR completed. LR given as ordered.
[2025-09-30 16:57] LABS: Glucose - Point of Care 100 mg/dl (70-99)
[2025-09-30] MEDS: OFIRMEV 100 IV (17:00)
--- NOTE | 2025-09-30 17:01 | PTCARENOTE ---
Addendum entered by Barbie Christy RN 09/30/25 17:10:
attempted CPAP trial, apneic periods w/ low TVs. placed back on SIMV settings.
Original Note:
pt SBP labile, total of 1L LR to be given per RAILWAY SIGNALLING ENGINEER. pt nods head appropriately, WARNER, opens eyes to voice. pt nodded head yes to pain, Ofirmev given as ordered.
[2025-09-30 18:02] LABS: Glucose - Point of Care 112 mg/dl (70-99)
--- NOTE | 2025-09-30 18:03 | PTCARENOTE ---
pt more alert, attempted CPAP trial, multiple periods of apnea, POX dropped to 87%. pt shook head no when asked if had history of sleep apnea. placed back on SIMV settings.
[2025-09-30 18:20] LABS: Hematocrit 28.8 % (37.0-47.0); Hemoglobin 10.2 g/dL (12.0-16.0); Platelet Count 91 10^3/uL (130-400)
[2025-09-30] MEDS: ZOFRAN 4 MG IV (18:40)
[2025-09-30 18:55] LABS: B.E. - POC 1.1 mmol/L; Glucose - POC 108 mg/dl (70-99); HCO3 - POC 25 mmol/L (21-28); Hematocrit - POC 26 % PCV (37-47); Hemodilution- POC Yes; Hemoglobin Calculated - POC 9.0; Ionized Calcium - POC 1.08 mmol/L (1.15-1.33); Lactate - POC 2.28 mmol/L (0.36-0.75); O2 Saturation %Calculated-POC 100.0 % (94-98); PCO2 - POC 35 mmHg (35-48); PO2 - POC 505 mmHg (83-108); POC Comment POST; Potassium - POC 2.7 mmol/L (3.5-5.1); Sodium - POC 142 mmol/L (136-145); Specimen Type - POC Arterial; pH - POC 7.46 (7.35-7.45)
--- NOTE | 2025-09-30 18:58 | PTCARENOTE ---
pt placed on CPAP @1840.
[2025-09-30 19:04] LABS: Glucose - Point of Care 102 mg/dl (70-99)
[2025-09-30 19:41] LABS: B.E. 4.2 mmol/L; HCO3 26.7 mmol/L (21-28); O2 Saturation % 99.6 % (94-98); PCO2 32 mmHg (32-35); PO2 183 mmHg (83-108); Potassium 3.2 mMOL/L (3.5-5.1)
[2025-09-30 19:42] LABS: O2 Therapy cpap
--- NOTE | 2025-09-30 20:00 | PTCARENOTE ---
Assumed care of patient at 1900 from prior RN, bedside report received. On Levo @ 2, Dubut @3 and insulin per protocol. Patient intubated with 8ETT Patient 23 at lip, Lungs diminished at bases, Heart sounds distant, pulses palpatable, no edema
noted, patient denies pain at this time. on CPAP trial. Moves all extremities, surgical sites CDI, 4 X chest tubes to wall suction draining red output. 100%AV paced DDD 72 A MA 10/.4 B .8 See workflow for full assessment
[2025-09-30] MEDS: KCL 50 IV (20:03)
[2025-09-30] MEDS: ANCEF 5 IV (20:03)
[2025-09-30] MEDS: CALCIUM GLUCONATE IV (20:04)
[2025-09-30] MEDS: LOW STRENGTH ASPIRIN 81 MG PO (20:04)
[2025-09-30] MEDS: CALCIUM GLUCONATE 130 MG IV (20:10)
--- NOTE | 2025-09-30 20:16 | RESPNOTE ---
pt extubated to 6 LPM NC without incident. -stridor, + vocalization
--- NOTE | 2025-09-30 20:19 | PTCARENOTE ---
ABG sent, patient extubated at 2009, on 4 L NC O2 Sat 100%, chewable asprin given
[2025-09-30] MEDS: SENOKOT 8.6 MG PO (20:24)
[2025-09-30 21:04] LABS: Glucose - Point of Care 79 mg/dl (70-99)
[2025-09-30] MEDS: NEURONTIN 100 MG PO (21:28)
[2025-09-30] MEDS: LIPITOR 40 MG PO (21:28)
[2025-09-30] MEDS: TYLENOL 975 MG PO (21:28)
[2025-09-30 22:09] LABS: Glucose - Point of Care 102 mg/dl (70-99)
[2025-09-30 23:06] LABS: Glucose - Point of Care 113 mg/dl (70-99)
[2025-09-30] MEDS: ROXICODONE 5 MG PO (23:30)
[2025-10-01] VITALS (28 sets, daily range): BP systolic 82–120; BP diastolic 45–62; BMI 25.5
[2025-10-01 00:37] LABS: Glucose - Point of Care 96 mg/dl (70-99)
--- NOTE | 2025-10-01 01:07 | PTCARENOTE ---
patient alert and oriented follows commands, On 2 L NC 99% , AV paced BP 102/50 afebrile, pain controlled, slight nauesa remains
[2025-10-01 02:04] LABS: Glucose - Point of Care 115 mg/dl (70-99)
[2025-10-01] MEDS: DILAUDID 0.5 MG IV (03:07)
[2025-10-01] MEDS: ANCEF 5 IV ×2 (03:08→11:36)
[2025-10-01 03:22] LABS: Glucose - Point of Care 115 mg/dl (70-99)
--- NOTE | 2025-10-01 03:42 | W.PN.CT ---
Today's Communication / Plan
-
Plan:
-No major issues overnight. Hemodynamically and neurologically intact
-Pt was successfully extubated yesterday 09/30/25 @ 2009
-On Dobutamine @ 3 given postop bradycardia, weaned off Levophed overnight. Remains on insulin gtt per protocol
-Last CI 2.03, MVO2 76.6, U/O 1110 mL since OR
-Monitor chest tube drainage: 2meds 130/240, R/L 180/280 pleural. F/U AM CxR
-Maintain temporary PW, will eventually cut
-Postop bradycardia/CHB requiring AV pacing @ 80 bpm, rhythm is currently junctional @ 60 bpm underneath pacer
-Held Amiodarone last night d/t bradycardia and pacer dependence
-Holding Lopressor while on Dobutamine, hypotensive and bradycardic overnight
-Cont. current meds (ASA, Plavix, Lipitor, Protonix)
-Maintain [place]/A-line while on Dobutamine
-Keep ricks for accurate I/O's while on Dobutamine
-Will transition off insulin gtt today per protocol
-Maintain cordis
-Encourage use of IS
-Wean off O2 as tolerated
-OOB into chair/Ambulate
Assessment / Plan
-
Assessment;
-S/P Median sternotomy/AVR (#25 Inspiris Resilia)/CABG x 1 (ANGIE to LAD)/ELAA (35mm AtriClip), by Dr. Edmond, 09/30/25, pod#1
-Severe aortic stenosis (P/M: 84.3/50.0, GEORGINA 0.85, Trace AI)/Functional bicuspid
-Single vessel CAD (LAD)
-LVEF 55-60%
-USA
-CVA, 2022
-Migraines
-Osteopenia
-S/p Left THR, 03/2018
-Acute intraop/postop blood loss/anemia (transfused 1u PRBC)
-Acute postop thrombocytopenia (stable without active bleed)
-Acute postop atelectasis
-Acute postop hypovolemia with subsequent hypervolemia
-Acute postop bradycardia/CHB S/P A/V paced with temporary PW
Discussed patient care with: Cardiology, Nursing, Respiratory Therapy, Pharmacy and Care Team
Subjective
Procedure
S/P Median sternotomy/AVR (#25 Inspiris Resilia)/CABG x 1 (ANGIE to LAD)/ELAA (35mm AtriClip), by Dr. Edmond, 09/30/25
-
Date of Service: October 01, 2025
Pt c/o incisional pain, otherwise feels well
Objective Data
-
PT 21.0 Sec (11.4-14.6) H 09/30/25 14:22
INR 1.80 09/30/25 14:22
APTT 31.7 Sec (23.4-35.0) 09/30/25 14:22
Vital Signs
Vital Signs
Temp Pulse Resp BP Pulse Ox
98.2 F 80 10 89/53 94
10/01/25 03:13 10/01/25 00:44 10/01/25 03:13 10/01/25 03:13 10/01/25 03:13
CT Intake/Output/Weight
09/30/25 09/30/25 10/01/25
06:59 18:59 06:59
Intake Total 1515.1 / 2181.2 666.1 / 2181.2
Output Total 745 / 1435 690 / 1435
Balance 770.1 / 746.2 -23.9 / 746.2
SaO2: 94 (2L)
Physical Exam
-
General: Awake, Oriented and AOx3
Cardiovascular: Regular rate & rhythm, No Murmurs, Rub (likely friction rub from chest tubes ) and No Gallop
Respiratory: Decreased Breath Sounds (at bases, otherwise clear)
Sternum: Stable
Incision: Clean, Dry, Intact and Dressing Intact
Extremities: Other (+trace edema)
Data Reviewed
-
Lab Results: Results Reviewed
Medications: Active Meds Reviewed
Chest X-Ray: Report Reviewed and Image Reviewed
ECG: Report Reviewed and Image Reviewed
[2025-10-01] MEDS: ZOFRAN 4 MG IV (04:00)
[2025-10-01 04:07] LABS: Blood Urea Nitrogen 14 mg/dl (7-17); Calcium 8.3 mg/dl (8.4-10.2); Carbon Dioxide 27 mmol/L (22-30); Chloride 108 mmol/L (98-107); Estimated Creatinine Clearance 69 ml/min; Glucose 102 mg/dl (70-99); Magnesium 2.2 mg/dl (1.6-2.3); Potassium 3.7 mmol/L (3.5-5.1); Sodium 137 mmol/L (135-145); eGFR > 60.00
[2025-10-01 04:13] LABS: Hematocrit 27.8 % (37.0-47.0); Hemoglobin 9.2 g/dL (12.0-16.0); Mean Corp Hgb Conc. 33.1 g/dL (33.0-37.0); Mean Corpuscular Volume 93.9 fL (81.0-99.0); Platelet Count 89 10^3/uL (130-400); Red Cell Dist. Width 13.3 % (11.5-14.5)
[2025-10-01 05:35] LABS: Glucose - Point of Care 108 mg/dl (70-99)
[2025-10-01] MEDS: TYLENOL 975 MG PO ×3 (05:53→22:13)
[2025-10-01] MEDS: REGLAN 10 MG IV (07:31)
[2025-10-01 08:06] LABS: Glucose - Point of Care 89 mg/dl (70-99)
--- NOTE | 2025-10-01 08:30 | PTCARENOTE ---
Assumed care of patient. Walking rounds completed with previous RN. Pt assessed while she was lying in bed. Pt alert and oriented x4. Pt rates sternal pain 3/10-states that is tolerable. c/o intermittent nausea, relieved with reglan. Denies
shortness of breath. WARNER with equal strength throughout. 100% AV paced via epicardial pacing wires set to DDD 80/16/6/0.4/2. Junctional rhythm in the 50s underneath with hypotension. BP 90s-100s/40s-50s. Dobutamine infusing at 3. Levo infusing at 2.
CI 2.63, PA pressures 20s/10s. CVP 5-8. Bilateral radial and DP pulses palpable. No edema noted. POX 96% on RA. Lungs diminished in the bases. IS [id number] achieved. Mediastinal chest tubes x2 y-sited to 1 atrium to -20cm suction
draining red fluid. Right and Left pleural chest tubes y-sited to 1 atrium to -20cm suction draining red fluid. No air leaks, tidaling, crepitus noted. Occasional nonproductive cough noted. Abdomen soft, nontender. +BS Pt reports flatus. Perry
catheter intact draining lillian urine. Sternal incision covered with Aquacel with small amounts of old drainage outlined, no additional. CT sites redressed, CDI. Right IJ cordis with swan floated to 48cm. Left radial cesar intact. All lines flushed,
leveled, zeroed. Right forearm 20g PIV intact infusing insulin per Critical Care Glycemic Protocol. See MAR for medication administration. See worklist for complete nursing assessment. Planof care reviewed and patient in agreement
--- NOTE | 2025-10-01 08:39 | W.PN.INTV ---
Today's Communication / Plan
Recommendations
- Wean Levophed and dobutamine as tolerated
- Incentive spirometry
- Outpatient follow-up with [facility] in pulmonary clinic postdischarge
Assessment
-
Patient is a 75 y/o female with severe aortic stenosis, S/p SAVR, CABG and ELAA, POD # 1
Titrate off pressors per protocol, MAP of 69, currently dobutamine infusing at 3, Levophed at 2.
ECHO reviewed with normal function
PA catheter readings reviewed, 09/06, mean 14
Management of chest tubes per primary service, no airleak noted
Patient successfully extubated, currently saturating 94% on room air. Work of breathing normal.
CXR with mild left lower lobe atelectasis, unchanged
Incentive spirometry
Prior history of biapical pleuroparenchymal scarring and stable pulmonary nodules
Prior PFTs reviewed, unremarkable
Can add nebulizers if needed
Aspiration precautions
Encouraged incentive spirometry, OOB/ambulation/early mobility
Advance diet as tolerated following extubation
GI prophylaxis: Protonix
Monitor critical I/O's
Perry/chest tube output
Hb/platelets postoperatively, mild drift
Trend CBC for now
Can transfuse if indicated for Hb <7, plt <50 in surgical patients
DVT prophylaxis including SCDs
Insulin protocol initiated and ongoing
Transition to SQ/off as indicated per team
Other medical diagnoses:
- Severe Aortic stenosis
- CAD
- Pulmonary nodule, stable since 2017. Likely benign.
- Mild apical pleural-parenchymal scarring. Spirometry unremarkable without evidence of restriction or obstruction. Routine outpatient follow-up with [facility] pulmonary clinic, information added in the chart.
- H/o CVA (2022)
- HTN
Critical Care time 42 mins -- The patient is admitted for acute critical illness for the treatment of vital organ failure and/or prevention of further life-threatening conditions. Total care includes time spent in review of history, physical exam,
medications, hemodynamic/ventilator parameters, laboratory data, imaging and discussion with house staff, pharmacy, respiratory therapy, transfer man, and nursing
Data:
Spirometry 09/2025: FEV1 2.4 L, 122% of predicted, FVC 129% of predicted, FEV1/FVC of 73. Normal spirometry without evidence of obstruction or restriction.
LHC 08/2025: 1. Known severe aortic stenosis
2. Ostial and mid LAD stenoses were shown to be hemodynamically significant with the iFR serially measuring well below the ischemic threshold at 0.76, 0.76, and 0.77.
ECHO 06/2025: 1. Left ventricular ejection fraction is normal with an ejection fraction of 63 % by Valenzuela's biplane method of discs.
2. Calcified trileaflet aortic valve with decreased leaflet excursion. Severe aortic stenosis. dimensionless index of 0.2. Mean pressure gradient of 50 mmHg and aortic valve area 0.85/cm² using LVOT diameter of 2.3 cm. Trace aortic insufficiency.
3. Mild concentric left ventricular hypertrophy.
CT Chest 08/2025: Mild bilateral apical pleuroparenchymal scarring. Mild dependent atelectasis in the posterior mid to lower lungs.
Thin linear density within the inferior lingula, stable, compatible with scarring.
In the medial aspect of the right middle lobe, there is a well-defined nodular density, measuring 1.2 cm AP by 1.0 cm transverse by 1.1 cm craniocaudal. This nodule is stable dating back to CT of the chest from May 22, 2017, reassuring that it is
benign.
Subjective Dataa
Subjective Data
Date of Service:
Date of Service: October 01, 2025
Subjective:
Patient comfortably lying in bed in no acute distress.
Review of Systems
Genitourinary: Other (All 14 systems reviewed and negative except as stated above in the history of present illness.)
Objective Data
Data Reviewed
Vital Signs / I&O / Oxygen:
Vital Signs
Temp Pulse Resp BP Pulse Ox
98 F 80 13 101/57 98
10/01/25 07:00 10/01/25 07:10 10/01/25 07:10 10/01/25 07:00 10/01/25 07:10
Intake and Output
09/30/25 10/01/25 10/02/25
06:59 06:59 06:59
Intake Total 2321.5 / 2370.3 109.4 / 109.4
Output Total 1630 / 1680 140 / 140
Balance 691.5 / 690.3 -30.6 / -30.6
SaO2 [SIMV] 96
SaO2 98
Nasal Cannula flow liters per 2
minute
Physical Exam
General: Comfortable
HEENT: Normocephalic
Respiratory: Clear and Non-Labored Respirations
GI: Soft and Non Distended
Neurology: Awake and Alert
Skin: Warm
Labs/Micro/Reports
Lab Data
10/01/25 03:17
10/01/25 03:17
Laboratory Results
09/30/25 09/30/25
14:22 19:31
PT 21.0 H
INR 1.80
APTT 31.7
pH 7.46 H 7.53 H
pCO2 35 32
pO2 171 H 183 H
HCO3 24.9 26.7
O2 Delivery Level vent cpap
[2025-10-01] MEDS: BACTROBAN 2% OINTMENT 1 APPLIC NASAL ×2 (09:00→20:23)
[2025-10-01] MEDS: LIDOCAINE 4% PATCH 1 PATCH TOPICAL (09:00)
[2025-10-01] MEDS: KCL 50 IV (09:01)
[2025-10-01] MEDS: MAGNESIUM OXIDE 400 MG PO ×2 (09:01→20:24)
[2025-10-01] MEDS: PLAVIX 75 MG PO (09:01)
[2025-10-01] MEDS: SENOKOT 8.6 MG PO ×2 (09:01→20:24)
[2025-10-01] MEDS: VITAMIN C 500 MG PO (09:01)
[2025-10-01] MEDS: PROTONIX 40 MG PO (09:01)
[2025-10-01] MEDS: LOW STRENGTH ASPIRIN 81 MG PO (09:01)
[2025-10-01] MEDS: FEOSOL 325 MG PO (09:02)
[2025-10-01] MEDS: NEURONTIN 100 MG PO ×3 (09:02→22:13)
[2025-10-01 10:02] LABS: Glucose - Point of Care 80 mg/dl (70-99)
--- NOTE | 2025-10-01 10:17 | W.PN.CARDCBS ---
Today's Communication / Plan
-
Continue to hold AV estrellita blocking agents, continue pacing via temporary wires and we can reassess AV conduction tomorrow.
Impression / Plan
-
Primary Sulfur Chloride Operator: Dr. Frank
Assessment:
Severe aortic stenosis, functionally bicuspid
Single-vessel CAD of LAD
Status post CABG x 1 SALVADOR to LAD, #25 Inspiris AVR, E SHEA 09/30/2025
History of stroke
Hypertension
Hyperlipidemia
Osteopenia
History of left hip replacement 2017
Echocardiogram 06/27/2025: EF 63%, severe with mean pressure gradient 50 mmHg, GEORGINA 0.85 cm�, trace AI, mild concentric LVH
Plan:
-Status post CABG x 1 SALVADOR to LAD, #25 Inspiris AVR, E SHEA 09/30/2025
extubated yesterday 09/30/25 @ 2009
weaned off Levophed overnight.
On Dobutamine @ 3
Postop bradycardia/CHB requiring AV pacing @ 80 bpm, rhythm is currently junctional @ 60 bpm underneath pacer
Held Amiodarone last night d/t bradycardia and pacer dependence
Holding Lopressor while on Dobutamine, hypotensive and bradycardic overnight
Would maintain pacing today and subsequently there can be reassessment of AV conduction
-Continue postoperative care
-Discussed with nursing
Progress Note - Sulfur Chloride Operator
Subjective
Date of Service: October 01, 2025
She tells me she feels tired but no other specific complaints
Objective
Labs:
10/01/25 03:17
10/01/25 03:17
Labs
Hgb 9.2 g/dL (12.0-16.0) L 10/01/25 03:17
Hct 27.8 % (37.0-47.0) L 10/01/25 03:17
Plt Count 89 10^3/uL (130-400) L 10/01/25 03:17
PT 21.0 Sec (11.4-14.6) H 09/30/25 14:22
INR 1.80 09/30/25 14:22
APTT 31.7 Sec (23.4-35.0) 09/30/25 14:22
Sodium 137 mmol/L (135-145) 10/01/25 03:17
Potassium 3.7 mmol/L (3.5-5.1) 10/01/25 03:17
BUN 14 mg/dl (7-17) 10/01/25 03:17
Creatinine 0.6 mg/dL (0.6-1.0) 10/01/25 03:17
Glucose 102 mg/dl (70-99) H 10/01/25 03:17
Vital Signs and I&O:
Vital Signs
Temp Pulse Resp BP Pulse Ox
98.4 F 80 14 89/54 95
10/01/25 10:00 10/01/25 10:01 10/01/25 10:01 10/01/25 10:01 10/01/25 10:00
Vital Signs
Temp Pulse Resp BP Pulse Ox
98.4 F 80 14 89/54 95
10/01/25 10:00 10/01/25 10:01 10/01/25 10:01 10/01/25 10:01 10/01/25 10:00
Intake & Output
09/29/25 09/30/25 10/01/25 10/02/25
06:59 06:59 06:59 06:59
Intake Total 2321.5 / 2370.3 159.3 / 159.3
Output Total 1630 / 1680 280 / 280
Balance 691.5 / 690.3 -120.7 / -120.7
Physical Exam
Physical Exam
Elderly woman in bed [place] catheter on the right neck and chest tubes in place. No acute distress
Heart is regular normal S1 and S2 no S3 no S4 is grade 1/6 apical holosystolic murmur no rub
Lungs clear to auscultation although there is poor inspiratory effort so there is reduced breath sounds at the bases
Abdomen soft nontender nondistended normoactive bowel sounds
Extremities show trace pretibial edema bilateral
Neurologic exam is grossly nonfocal
--- NOTE | 2025-10-01 10:31 | W.PN.ANS.POP ---
Anesthesia Post Operative
- Anesthesia Post Op Note
Vital Signs Stable-See Nursing Note: Yes
Airway Patent: Yes
Adequate Pain Control: Yes
Change in Mental Status: No
Current Postoperative Nausea & Vomiting: No
Anesthesia Complications: No
General Anesthetic Recall: No
Unplanned Admission: No
Post Op Hydration Adequate: Yes
[2025-10-01] MEDS: NSS IV (10:44)
[2025-10-01] MEDS: FLEXERIL 5 MG PO (11:55)
--- NOTE | 2025-10-01 12:00 | PTCARENOTE ---
Pt reassessed. Remains 100% AV paced via epicardial wires. BP stable off levophed. [place]son positional, confirmed with cuff BPs. POX 94% on RA. Surgical sites stable. CT output 10-30ml/hr. UO less than 30, CT DROP MAN notified. Remains on insulin and
dobutamine.
[2025-10-01 12:15] LABS: Glucose - Point of Care 101 mg/dl (70-99)
[2025-10-01] MEDS: LR 250 ML IV (12:17)
--- NOTE | 2025-10-01 12:21 | OUTPTREHAB ---
CRHB: Pt not able to start exercise yet this am. Reviewed/demonstrated and left packet with seated ROM she can do this afternoon as tolerated. She verbalized understanding. Discussed outpatient cardiac rehab plan. She was receptive. Her first appt
was scheduled for .
--- NOTE | 2025-10-01 13:30 | PTCARENOTE ---
Pt assisted OOB with 2 RN. Pt c/o dizziness, overall tolerated. Pleural CTs with 65ml output upon standing.
[2025-10-01 14:14] LABS: Glucose - Point of Care 88 mg/dl (70-99)
[2025-10-01] MEDS: LR 500 IV (14:46)
--- NOTE | 2025-10-01 16:00 | PTCARENOTE ---
Pt reassessed. Remains up in the chair. 100% AV paced at 80bpm. POX 96% on RA. BP supported with levo at 1 and Dobutamine at 2. CI 2.55. UO remains low, CT SLUBBER MACHINE OPERATOR aware. LR @50ml infusing. CT output WNL, CT SLUBBER MACHINE OPERATOR aware of output. All lines intact. [place]
positional, arm board applied. No blood return from cesar, CT SLUBBER MACHINE OPERATOR aware. Labs obtained.
[2025-10-01 16:40] LABS: Hematocrit 27.1 % (37.0-47.0); Hemoglobin 9.1 g/dL (12.0-16.0); Mean Corp Hgb Conc. 33.6 g/dL (33.0-37.0); Mean Corpuscular Volume 93.8 fL (81.0-99.0); Platelet Count 102 10^3/uL (130-400); Red Cell Dist. Width 13.7 % (11.5-14.5)
[2025-10-01 17:01] LABS: Blood Urea Nitrogen 18 mg/dl (7-17); Calcium 8.6 mg/dl (8.4-10.2); Carbon Dioxide 25 mmol/L (22-30); Chloride 105 mmol/L (98-107); Estimated Creatinine Clearance 59 ml/min; Glucose 131 mg/dl (70-99); Potassium 4.3 mmol/L (3.5-5.1); Sodium 133 mmol/L (135-145); eGFR > 60.00
[2025-10-01] MEDS: REMOVE LIDOCAINE PATCH 1 PATCH REMOVE (20:24)
[2025-10-01] MEDS: CALCIUM GLUCONATE 130 MG IV (20:24)
--- NOTE | 2025-10-01 20:30 | PTCARENOTE ---
Report received from STELLA Quinonez. Walking rounds done. VS recorded. Pt assessed. Pt awake, alert, oriented x 4. Speech clear. Equal strength x 4. On room air. Sats 97-99%. BBS present. Decreased B bases. CDB and IS encouraged. IS peak [address] x
4: mediastinal x 2, B pleurals. All to -20 cm suction. SSG drainage. Audible heart tones. + rub. Pt 100% AV paced at 80 bpm. BP upper 90's-100's/upper 40-50's. MAPs 60's. Levophed at 1 mcg/min. Dobutamine at 2 mcg/kg/min. CI done: 2.49, SVR 988. RIJ
[place] at 48 cm with pulsatile PA and CVP waveforms. Ca Gluc 3 GM IV ordered and given. For pulse and wound assessments, see flowsheets. Belly soft, nontender. Hypoactive bs x 4. Poor appetite. No c/o nausea. Perry draining clear, yellow urine. Hourly
UO recorded. Ongoing plan of care.
[2025-10-01] MEDS: LIPITOR 40 MG PO (22:12)
--- NOTE | 2025-10-01 23:15 | PTCARENOTE ---
BP after Ca Gluc infusion now 120-130's/50's. MAPs 60-70's. CI 2.63. Levo gtt off. BP after Levo off trending 100's/40's. UO 20 mls for 0. Discussed with BERNY. Dobut gtt remains at 2 mcg/kg/min at this time.
[2025-10-02] VITALS (33 sets, daily range): BP systolic 75–135; BP diastolic 46–94; BMI 26.1
[2025-10-02] MEDS: ZOFRAN 4 MG IV (04:11)
--- NOTE | 2025-10-02 04:15 | PTCARENOTE ---
Repeat CI 2.37, 2.33. Dobut remains at 2 mcg. C/O mild nausea. Zofran 4 mg IV given. C/o moderate sternal pain. Roxicodone 5 mg po given. Labs drawn and sent.
[2025-10-02] MEDS: ROXICODONE 5 MG PO ×2 (04:21→15:39)
--- NOTE | 2025-10-02 04:23 | W.PN.CT ---
Today's Communication / Plan
-
Plan:
-No major issues overnight. Hemodynamically and neurologically intact
-Pt was successfully extubated yesterday 09/30/25 @ 2009
-On Dobutamine @ 2, weaned off Levophed overnight
-Last CI 2.33, MVO2 70.6%, U/O 600 mL since OR
-Monitor chest tube drainage: 2meds 35/245, R/L pleural 75/355. F/U AM CxR
-Maintain temporary PW, will eventually cut
-Postop bradycardia/CHB requiring AV pacing @ 80 bpm. Currently has nothing underneath. Will need EP evaluation for PPM placement
-Holding Amiodarone and BB
-Cont. current meds (ASA, Plavix, Lipitor, Protonix)
-Maintain [place]/A-line while on Dobutamine
-Keep ricks for accurate I/O's while on Dobutamine
-Will transition off insulin gtt today per protocol
-Maintain cordis
-Encourage use of IS
-OOB into chair/Ambulate
Assessment / Plan
-
Assessment;
-S/P Median sternotomy/AVR (#25 Inspiris Resilia)/CABG x 1 (ANGIE to LAD)/ELAA (35mm AtriClip), by Dr. Edmond, 09/30/25, pod#2
-Severe aortic stenosis (P/M: 84.3/50.0, GEORGINA 0.85, Trace AI)/Functional bicuspid
-Single vessel CAD (LAD)
-LVEF 55-60%
-[place]
-CVA, 2022
-Migraines
-Osteopenia
-S/p Left THR, 03/2018
-Acute intraop/postop blood loss/anemia (transfused 1u PRBC)
-Acute postop thrombocytopenia (stable without active bleed)
-Acute postop atelectasis
-Acute postop hypovolemia with subsequent hypervolemia
-Acute postop bradycardia/CHB S/P A/V paced with temporary PW
Discussed patient care with: Cardiology, Nursing, Respiratory Therapy, Pharmacy and Care Team
Subjective
Procedure
S/P Median sternotomy/AVR (#25 Inspiris [place])/CABG x 1 (ANGIE to LAD)/ELAA (35mm AtriClip), by Dr. Edmond, 09/30/25
-
Date of Service: October 02, 2025
Pt c/o mild incisional pain, otherwise feels well
Objective Data
-
PT 21.0 Sec (11.4-14.6) H 09/30/25 14:22
INR 1.80 09/30/25 14:22
APTT 31.7 Sec (23.4-35.0) 09/30/25 14:22
Vital Signs
Vital Signs
Temp Pulse Resp BP Pulse Ox
99.5 F 80 14 98/46 98
10/02/25 03:00 10/02/25 03:25 10/02/25 03:25 10/02/25 03:00 10/02/25 03:25
CT Intake/Output/Weight
10/01/25 10/01/25 10/02/25
06:59 18:59 06:59
Intake Total 806.4 / 2370.3 926.9 / 1739.2 812.3 / 1739.2
Output Total 885 / 1680 805 / 1150 345 / 1150
Balance -78.6 / 690.3 121.9 / 589.2 467.3 / 589.2
SaO2: 98 (RA)
Physical Exam
-
General: Awake, Oriented and AOx3
Cardiovascular: Regular rate & rhythm (a/v paced @ 80 bpm), No Murmurs, No Rub and No Gallop
Respiratory: Decreased Breath Sounds (at bases, otherwise clear)
Sternum: Stable
Incision: Clean, Dry, Intact and Dressing Intact
Extremities: Other (+trace edema)
Data Reviewed
-
Lab Results: Results Reviewed
Medications: Active Meds Reviewed
Chest X-Ray: Report Reviewed and Image Reviewed
ECG: Report Reviewed and Image Reviewed
[2025-10-02 05:35] LABS: Hematocrit 25.2 % (37.0-47.0); Hemoglobin 8.4 g/dL (12.0-16.0); Mean Corp Hgb Conc. 33.3 g/dL (33.0-37.0); Mean Corpuscular Volume 94.7 fL (81.0-99.0); Platelet Count 70 10^3/uL (130-400); Red Cell Dist. Width 13.6 % (11.5-14.5)
[2025-10-02 05:41] LABS: Blood Urea Nitrogen 21 mg/dl (7-17); Calcium 8.6 mg/dl (8.4-10.2); Carbon Dioxide 26 mmol/L (22-30); Chloride 104 mmol/L (98-107); Estimated Creatinine Clearance 69 ml/min; Glucose 123 mg/dl (70-99); Magnesium 2.1 mg/dl (1.6-2.3); Potassium 4.3 mmol/L (3.5-5.1); Sodium 132 mmol/L (135-145); eGFR > 60.00
--- NOTE | 2025-10-02 06:30 | PTCARENOTE ---
Intrinsic rhythm checked by PA. Pt without underlying rhythm. Temp pacer set for 80 bpm, both A and V, mA 15 ( A and V). Adequate capture. BP 120's/50's. Levo remains off. Dobut remains at 2 mcg/kg/min. Pt repositioned, CHG bath given.
[2025-10-02] MEDS: TYLENOL 975 MG PO ×3 (06:40→21:26)
[2025-10-02] MEDS: CALCIUM GLUCONATE 130 MG IV (06:53)
--- NOTE | 2025-10-02 08:00 | PTCARENOTE ---
Resumed care of patient. Walking round completed with previous RN. Pt assessed while she was lying in bed. Pt alert and oriented x4. Denies pain and nausea. WARNER with equal strength throughout. 100% AV paced via epicardial pacing wires. DDD 80/15/15,
CT REHAB SPECIALIST and Dr. Maciel at bedside, intermittent junctional rhythm underlying. BP 114/53 via cuff. PA pressures 30s/10s, CVP 9. CI 2.82. Dobutamine decreased to 1 per orders. Bilateral radial and DP pulses palpable. b/l feet and hand with +1 edema. POX
96% on RA. Lungs diminished in the bases. IS encouraged-750ml achieved. Right and left pleural CTs to -20cm suction draining serosanguineous fluid. Mediastinal CTs x2 y-sited to 1 atrium to -20cm suction draining serosanguineous fluid. No air leaks,
tidaling, crepitus noted. No cough noted at this time. Abdomen soft, nontender. +BS, pt reports passing gas. Tolerating diet. Perry catheter intact draining clear yellow urine. Sternal incision covered with Aquacel, small amount of old drainage
outlined, no additional. CT dressing CDI. Right IJ cordis and swan floated to 48cm. Left radial cesar intact, positional. All lines flushed, leveled, and zeroed. Right forearm 20 PIV intact. See MAR for medication administration. See worklist for
complete nursing assessment. Plan of care reviewed and patient in agreement.
[2025-10-02] MEDS: PLAVIX 75 MG PO (08:17)
[2025-10-02] MEDS: NEURONTIN 100 MG PO ×3 (08:17→21:26)
[2025-10-02] MEDS: VITAMIN C 500 MG PO (08:17)
[2025-10-02] MEDS: MAGNESIUM OXIDE 400 MG PO ×2 (08:17→19:30)
[2025-10-02] MEDS: FEOSOL 325 MG PO (08:17)
[2025-10-02] MEDS: LIDOCAINE 4% PATCH TOPICAL (08:17)
[2025-10-02] MEDS: SENOKOT 8.6 MG PO ×2 (08:17→19:30)
[2025-10-02] MEDS: PROTONIX 40 MG PO (08:17)
[2025-10-02] MEDS: BACTROBAN 2% OINTMENT 1 APPLIC NASAL ×2 (08:18→19:29)
--- NOTE | 2025-10-02 09:38 | PTCARENOTE ---
Dr. Funes at bedside to adjust temp pacer to backup rate of 50bpm. Pt has intrinsic rhythm, NSR in the 90s. BP stable.
--- NOTE | 2025-10-02 10:07 | PTCARENOTE ---
Pt intermittently needing to use back up pacer set to 50bpm. Pt hypotensive in the 70s-80s with this rhythm. CT ADMINISTRATION ASSISTANT and Dr. Funes notified.
--- NOTE | 2025-10-02 10:20 | W.PN.INTV ---
Today's Communication / Plan
Recommendations
- Continue to wean dobutamine as tolerated
- Edging Machine Catcher service will sign off once patient is transferred out of ICU
Assessment
-
Patient is a 75 y/o female with severe aortic stenosis, S/p SAVR, CABG and ELAA, POD # 2
Titrate off pressors per protocol, MAP of 82, dobutamine infusing at 1.
ECHO reviewed with normal function
PA catheter readings reviewed, , mean 21. CVP of 10.
Management of chest tubes per primary service, no airleak noted
Paced rhythm noted on the monitor
Patient successfully extubated, currently saturating 96% on room air. Work of breathing normal.
CXR with mild left lower lobe atelectasis, unchanged
Incentive spirometry
Prior history of biapical pleuroparenchymal scarring and stable pulmonary nodules
Prior PFTs reviewed, unremarkable
Can add nebulizers if needed
Aspiration precautions
Encouraged incentive spirometry, OOB/ambulation/early mobility
Advance diet as tolerated following extubation
GI prophylaxis: Protonix
Monitor critical I/O's
Perry/chest tube output
Hb/platelets postoperatively, mild drift
Trend CBC for now
Can transfuse if indicated for Hb <7, plt <50 in surgical patients
DVT prophylaxis including SCDs
Insulin protocol initiated and ongoing
Transition to SQ/off as indicated per team
Other medical diagnoses:
- Severe Aortic stenosis
- CAD
- Pulmonary nodule, stable since 2017. Likely benign.
- Mild apical pleural-parenchymal scarring. Spirometry unremarkable without evidence of restriction or obstruction. Routine outpatient follow-up with [facility] pulmonary clinic, information added in the chart.
- H/o CVA (2022)
- HTN
Critical Care time 38 mins -- The patient is admitted for acute critical illness for the treatment of vital organ failure and/or prevention of further life-threatening conditions. Total care includes time spent in review of history, physical exam,
medications, hemodynamic/ventilator parameters, laboratory data, imaging and discussion with house staff, pharmacy, respiratory therapy, papeterie table assembler, and nursing
Data:
Spirometry 09/2025: FEV1 2.4 L, 122% of predicted, FVC 129% of predicted, FEV1/FVC of 73. Normal spirometry without evidence of obstruction or restriction.
LHC 08/2025: 1. Known severe aortic stenosis
2. Ostial and mid LAD stenoses were shown to be hemodynamically significant with the iFR serially measuring well below the ischemic threshold at 0.76, 0.76, and 0.77.
ECHO 06/2025: 1. Left ventricular ejection fraction is normal with an ejection fraction of 63 % by Valenzuela's biplane method of discs.
2. Calcified trileaflet aortic valve with decreased leaflet excursion. Severe aortic stenosis. dimensionless index of 0.2. Mean pressure gradient of 50 mmHg and aortic valve area 0.85/cm² using LVOT diameter of 2.3 cm. Trace aortic insufficiency.
3. Mild concentric left ventricular hypertrophy.
CT Chest 08/2025: Mild bilateral apical pleuroparenchymal scarring. Mild dependent atelectasis in the posterior mid to lower lungs.
Thin linear density within the inferior lingula, stable, compatible with scarring.
In the medial aspect of the right middle lobe, there is a well-defined nodular density, measuring 1.2 cm AP by 1.0 cm transverse by 1.1 cm craniocaudal. This nodule is stable dating back to CT of the chest from May 22, 2017, reassuring that it is
benign.
Subjective Dataa
Subjective Data
Date of Service:
Date of Service: October 02, 2025
Subjective:
Comfortably sitting in bed in no acute distress.
Review of Systems
Genitourinary: Other (All 14 systems reviewed and negative except as stated above in the history of present illness.)
Objective Data
Data Reviewed
Vital Signs / I&O / Oxygen:
Vital Signs
Temp Pulse Resp BP Pulse Ox
98.5 F 61 19 91/47 100
10/02/25 08:00 10/02/25 10:10 10/02/25 10:10 10/02/25 10:08 10/02/25 08:35
Intake and Output
10/01/25 10/02/25 10/03/25
06:59 06:59 06:59
Intake Total 2321.5 / 2370.3 1804.9 / 1956.8 275.6 / 275.6
Output Total 1630 / 1680 1230 / 1230 295 / 295
Balance 691.5 / 690.3 574.9 / 726.8 -19.4 / -19.4
SaO2 [SIMV] 96
SaO2 100
Nasal Cannula flow liters per 2
minute
Physical Exam
General: Comfortable
HEENT: Normocephalic
Respiratory: Clear and Non-Labored Respirations
GI: Soft and Non Distended
Neurology: Awake and Alert
Skin: Warm
Labs/Micro/Reports
Lab Data
10/02/25 04:45
10/02/25 04:45
Laboratory Results
10/01/25
16:08
pH Cancelled
pCO2 Cancelled
pO2 Cancelled
HCO3 Cancelled
O2 Delivery Level Cancelled
--- NOTE | 2025-10-02 10:23 | PTCARENOTE ---
Dr. Funes at bedside to adjust temp pacer to rate of 66bpm. Pt 100% AV paced at 66bpm. discussing PPM in future with patient.
--- NOTE | 2025-10-02 10:39 | W.PN.CARDCBS ---
Today's Communication / Plan
-
Continue pacing via the temporary wires as needed and we will continue to assess need for permanent pacemaker implantation which if needed would be planned for the day prior to her planned CT surgical discharge to allow the most time for AV
conduction system to possibly come back
Impression / Plan
-
Primary Automobile Tire Builder: Dr. Frank
Assessment:
Severe aortic stenosis, functionally bicuspid
Single-vessel CAD of LAD
Status post CABG x 1 SALVADOR to LAD, #25 Inspiris AVR, E SHEA 09/30/2025
History of stroke
Hypertension
Hyperlipidemia
Osteopenia
History of left hip replacement 2017
Echocardiogram 06/27/2025: EF 63%, severe with mean pressure gradient 50 mmHg, GEORGINA 0.85 cm�, trace AI, mild concentric LVH
Plan:
-Status post CABG x 1 SALVADOR to LAD, #25 Inspiris AVR, E SHEA 09/30/2025
extubated 09/30/25 @ 2009
Postop bradycardia/CHB requiring AV pacing @ 80 bpm, rhythm is currently junctional @ 60 bpm underneath pacer
Holding Lopressor and amio
Would maintain pacing today and subsequently there can be reassessment of AV conduction
I discussed with the patient and CT surgery that if she continues to require pacing through the temporary wires we would recommend pacemaker implantation. She is agreeable.
If needed, would plan for permanent pacemaker on the day prior to targeted discharge from CT surgery service. This would allow the most time for AV conduction system to possibly come back
-Continue postoperative care
-Discussed with nursing, discussed with patient, discussed with CT surgery
Progress Note - Automobile Tire Builder
Subjective
Date of Service: October 02, 2025
She is sitting up in a chair and she tells me she feels much better than yesterday. No chest pain other than some minor incisional discomfort.
Objective
Labs:
10/02/25 04:45
10/02/25 04:45
Labs
Hgb 8.4 g/dL (12.0-16.0) L 10/02/25 04:45
Hct 25.2 % (37.0-47.0) L 10/02/25 04:45
Plt Count 70 10^3/uL (130-400) L D 10/02/25 04:45
PT 21.0 Sec (11.4-14.6) H 09/30/25 14:22
INR 1.80 09/30/25 14:22
APTT 31.7 Sec (23.4-35.0) 09/30/25 14:22
Sodium 132 mmol/L (135-145) L 10/02/25 04:45
Potassium 4.3 mmol/L (3.5-5.1) 10/02/25 04:45
BUN 21 mg/dl (7-17) H 10/02/25 04:45
Creatinine 0.6 mg/dL (0.6-1.0) 10/02/25 04:45
Glucose 123 mg/dl (70-99) H 10/02/25 04:45
Vital Signs and I&O:
Vital Signs
Temp Pulse Resp BP Pulse Ox
98.5 F 61 19 /47 100
10/02/25 08:00 10/02/25 10:10 10/02/25 10:10 10/02/25 10:08 10/02/25 08:35
Vital Signs
Temp Pulse Resp BP Pulse Ox
98.5 F 61 19 /47 100
10/02/25 08:00 10/02/25 10:10 10/02/25 10:10 10/02/25 10:08 10/02/25 08:35
Intake & Output
09/30/25 10/01/25 10/02/25 10/03/25
06:59 06:59 06:59 06:59
Intake Total 2321.5 / 2370.3 1804.9 / 1956.8 275.6 / 275.6
Output Total 1630 / 1680 1230 / 1230 295 / 295
Balance 691.5 / 690.3 574.9 / 726.8 -19.4 / -19.4
Physical Exam
Physical Exam
Well-appearing, sitting up in chair, smiling no distress
Regular rate and rhythm with normal S1 and S2, no S3 no S4 grade 1/6 apical holosystolic murmur no rubs
Lungs decreased breath sounds at both bases otherwise clear
Neurologic exam grossly nonfocal
--- NOTE | 2025-10-02 12:00 | PTCARENOTE ---
Pt reassessed. Pt intermittently has underlying rhythm but primarily 100% AV paced at rate of 66. BP 98/53 via cuff. POX 94% on RA. Surgical sites stable. CI 1.88, CT BALLISTICS TEACHER notified. Remains at 1 of dobut. Perry borderline adequate 25-35/hr. CT BALLISTICS TEACHER
notified of CT output. All lines remain intact. No other acute changes.
[2025-10-02] MEDS: LASIX 40 MG IV (12:02)
[2025-10-02] MEDS: FLEXERIL 5 MG PO (12:26)
[2025-10-02] MEDS: NSS 500 IV (14:05)
[2025-10-02] MEDS: DOBUTREX 250 IV (14:15)
[2025-10-02] MEDS: LR 250 ML IV (14:15)
--- NOTE | 2025-10-02 15:15 | PTCARENOTE ---
CT MISSILE TRACKING TECHNICIAN and Dr. Edmond notified of CI. Per Dr. Edmond, increase rate of temp pacer to 80bpm.
--- NOTE | 2025-10-02 16:30 | PTCARENOTE ---
Pt reassessed. Remains sitting up in the chair, tolerating. Pt denies pain after 5mg Radhika. 100% AV paced at 80bpm via temp pacer. BP stable. CI 1.99. UO adequate. All lines remain intact. No large dumps from CTs. Dobut continues at 1.
[2025-10-02] MEDS: REMOVE LIDOCAINE PATCH REMOVE (19:32)
--- NOTE | 2025-10-02 20:00 | PTCARENOTE ---
Assumed care of patient, Report received from previous RN. Patient was OOB to chair,assisted by 2 RN's back to bed. Pt alert and oriented, follows all commands, WARNER with good equal strength bilaterally. Denies pain and nausea. AV paced via
epicardial pacing wires. DDD 80/15/15, 100% paced. . Bilateral radial and DP pulses palpable. PA pressures 25/5, CVP 6. CI 2.04 , Bilateral +1 edema hands and feet Lungs diminished in the bases. IS encouraged-850ml.POX 94% on RA. [address]: Right and left pleural CTs, Mediastinal CTs x2 to -20cm suction draining serosanguineous fluid. No air leaks, tidaling, crepitus noted .CT dressing CDI. Abdomen soft, nontender. +BS, +gas. Tolerating diet. Perry catheter intact draining
clear yellow urine with low output 20-50 cc/hr . Sternal incision dressing CDI, Aquacel- old drainage outlined and marked. Has Right IJ cordis and swan floated to 48cm. Left radial cesar very positional. All lines flushed, leveled, and zeroed.
Right FA# 20 PIV CDI See wordlist for detailed nursing assessment. Review plan of care with patient CRIMINAL COURT JUDGE at midnight for PPM in morning.
[2025-10-02] MEDS: LIPITOR 40 MG PO (21:26)
--- NOTE | 2025-10-02 21:37 | PTCARENOTE ---
Patient resting comfortably in bed, assessment completed, Arterial line not reading consistently called Ed Glory in to assess, Art line was no longer working correctly and was removed by PA, pressure held for 10 minutes and pressure dressing
applied. RN remained in room with patient and completed CHG bath and oral care, and PM medications, site remained Clean dry and intact , no sign of bleeding. Patient educated on limb restrictions after line removal.
[2025-10-03] VITALS (30 sets, daily range): BP systolic 85–166; BP diastolic 37–94; PULSE 80; O2SAT 93–96; BMI 26.5
--- NOTE | 2025-10-03 00:12 | PTCARENOTE ---
patient resting, vital signs stable, 100% AV paced, 94% on room air. no changes to assessment.
[2025-10-03 03:47] LABS: Hematocrit 24.7 % (37.0-47.0); Hemoglobin 8.1 g/dL (12.0-16.0); Mean Corp Hgb Conc. 32.8 g/dL (33.0-37.0); Mean Corpuscular Volume 96.1 fL (81.0-99.0); Platelet Count 67 10^3/uL (130-400); Red Cell Dist. Width 13.3 % (11.5-14.5)
[2025-10-03 03:49] LABS: Blood Urea Nitrogen 19 mg/dl (7-17); Calcium 8.0 mg/dl (8.4-10.2); Carbon Dioxide 28 mmol/L (22-30); Chloride 105 mmol/L (98-107); Estimated Creatinine Clearance 69 ml/min; Glucose 105 mg/dl (70-99); Magnesium 1.8 mg/dl (1.6-2.3); Potassium 4.0 mmol/L (3.5-5.1); Sodium 132 mmol/L (135-145); eGFR > 60.00
--- NOTE | 2025-10-03 04:03 | W.PN.CT ---
Today's Communication / Plan
-
Plan:
-No major issues overnight. Hemodynamically and neurologically intact
-Weaned off Dobutamine yesterday 10/02
-Monitor chest tube drainage, will d/c after PPM placement: 2meds 15/, R/L pleural 55/375. F/U AM CxR
-Maintain temporary PW, will d/c after PPM placement
-Postop bradycardia/CHB requiring AV pacing @ 80 bpm. Had no underlying rhythm (asystolic) yesterday morning, subsequently accelerated junctional and junctional @ 65 this AM
-NPO for PPM placement today
-Holding Amiodarone and BB
-Monitor plts, 70-> 67, will cont. ASA and hold Plavix per Dr. Edomnd
-Cont. current meds (ASA, Plavix, Lipitor, Protonix)
-Will D/C [place]/A-line after PPM
-Will D/C ricks after PPM
-D/C'd non-functional A-line last night
-Maintain cordis
-Encourage use of IS
-OOB into chair/Ambulate
Assessment / Plan
-
Assessment;
-S/P Median sternotomy/AVR (#25 Inspiris Resilia)/CABG x 1 (ANGIE to LAD)/ELAA (35mm AtriClip), by Dr. Edmond, 09/30/25, pod#3
-Severe aortic stenosis (P/M: 84.3/50.0, GEORGINA 0.85, Trace AI)/Functional bicuspid
-Single vessel CAD (LAD)
-LVEF 55-60%
-[place]
-CVA, 2022
-Migraines
-Osteopenia
-S/p Left THR, 03/2018
-Acute intraop/postop blood loss/anemia (transfused 1u PRBC)
-Acute postop thrombocytopenia (stable without active bleed)
-Acute postop atelectasis
-Acute postop hypovolemia with subsequent hypervolemia
-Acute postop bradycardia/CHB S/P A/V paced with temporary PW
Discussed patient care with: Cardiology, Nursing, Respiratory Therapy, Pharmacy and Care Team
Subjective
Procedure
S/P Median sternotomy/AVR (#25 Inspiris Resilia)/CABG x 1 (ANGIE to LAD)/ELAA (35mm AtriClip), by Dr. Edmond, 09/30/25
-
Date of Service: October 03, 2025
Pt c/o mild incisional pain, otherwise feels well
Objective Data
-
Lab Results
10/03/25 03:23
10/03/25 03:23
PT 21.0 Sec (11.4-14.6) H 09/30/25 14:22
INR 1.80 09/30/25 14:22
APTT 31.7 Sec (23.4-35.0) 09/30/25 14:22
Vital Signs
Vital Signs
Temp Pulse Resp BP Pulse Ox
98.6 F 80 15 110/65 97
10/03/25 02:00 10/03/25 02:10 10/03/25 02:10 10/03/25 02:00 10/03/25 02:10
CT Intake/Output/Weight
10/02/25 10/02/25 10/03/25
06:59 18:59 06:59
Intake Total 878.0 / 1956.8 832.8 / 1217.8 385 / 1217.8
Output Total 425 / 1230 1155 / 1430 275 / 1430
Balance 453.0 / 726.8 -322.2 / -212.2 110 / -212.2
SaO2: 97 (RA)
Physical Exam
-
General: Awake, Oriented and AOx3
Cardiovascular: Regular rate & rhythm, No Murmurs, No Rub and No Gallop
Respiratory: Decreased Breath Sounds (at bases, otherwise clear)
Sternum: Stable
Incision: Clean, Dry, Intact and Dressing Intact
Extremities: Other (+trace edema)
Data Reviewed
-
Lab Results: Results Reviewed
Medications: Active Meds Reviewed
Chest X-Ray: Image Reviewed
ECG: Report Reviewed and Image Reviewed
[2025-10-03] MEDS: LASIX 40 MG IV (04:16)
[2025-10-03] MEDS: CALCIUM GLUCONATE 130 MG IV (04:17)
[2025-10-03] MEDS: MAGNESIUM SULFATE 50 IV (04:29)
--- NOTE | 2025-10-03 04:33 | PTCARENOTE ---
Patient remains stable, CI 2.17, Vitals BP 115/67, 98.9', 80bpm AV paced 100%, on room air O2 Sat 97%, RR14. Mg+ and Ca+ replaced, IV Lasix 40 given. patient denies pain, assessment unchanged.
[2025-10-03] MEDS: TYLENOL 975 MG PO ×2 (06:24→21:37)
[2025-10-03] MEDS: PROTONIX 40 MG PO (08:08)
[2025-10-03] MEDS: NEURONTIN 100 MG PO ×3 (08:08→21:37)
[2025-10-03] MEDS: LOW STRENGTH ASPIRIN 81 MG PO (08:08)
[2025-10-03] MEDS: BACTROBAN 2% OINTMENT 1 APPLIC NASAL ×2 (08:09→20:25)
[2025-10-03] MEDS: VITAMIN C PO (08:21)
[2025-10-03] MEDS: SENOKOT PO (08:21)
[2025-10-03] MEDS: FEOSOL PO (08:21)
--- NOTE | 2025-10-03 08:48 | PTCARENOTE ---
Received pt from plant operator/shift supervisor RN; pt AAOx3 and resting comfortably in chair; 100% AV paced on monitor and VSS; RIJ Cordis, [place] floated to 48 and PIV x1 all lines leveled and zeroed; Lungs diminished; IS to 1000; CT x4 to -20 wall suction no air leak
and no crepitus noted; positive bowel sounds; Perry catheter draining clear yellow urine; palpable pulses throughout; trace lower extremity edema noted and trace in Left upper extremity; all surgical sites C/D/I; see nursing documentation for
further details.
[2025-10-03] MEDS: MAGNESIUM OXIDE PO (09:11)
[2025-10-03 09:17] LABS: Glucose - Point of Care 88 mg/dl (70-99)
[2025-10-03] MEDS: LIDOCAINE 4% PATCH TOPICAL (09:58)
[2025-10-03] MEDS: SOLU-CORTEF 200 MG IV ×2 (10:02→12:58)
--- NOTE | 2025-10-03 10:55 | PN.CDI ---
CDI
- -
CDI:
Physician Documentation Request
Admit Date: 09/30/25 04:58
Dear Doctor/CVPA,
Please review the following and provide your response in the progress notes.
Clinical Indicators:
Pt admitted with CAD/ for scheduled CABG/AVR
Sodium levels are as below /Pt did get LR IVFs
Laboratory Tests
10/01/25 10/02/25 10/03/25
16:22 04:45 03:23
Sodium 133 L 132 L 132 L
Based on the above, could you clarify in the progress notes, the appropriate diagnosis, if significant, that supports the above abnormalities and additional evaluation, monitoring and/or treatment rendered:
Hyponatremia
Abnormal lab value
Other ( please specify)
Use of terms such as suspected, likely, concern for, or probable (associated with a specific diagnosis that is being evaluated, monitored, or treated as if it exists) are acceptable and can be coded in the inpatient setting, when documented at the
time of discharge.
Thank you,
Berna Johns RN
CDI Specialist
[facility]
Please use your independent medical judgment in providing your response.
--- NOTE | 2025-10-03 11:35 | PTCARENOTE ---
Assessment unchanged; A/V paced on monitor and VSS: NPO for PPM; pt resting comfortably in chair.
--- NOTE | 2025-10-03 12:03 | W.PN.INTV ---
Today's Communication / Plan
Recommendations
For permanent pacemaker placement this admission
Continue cardiac management
Follow chest tube output
Continue analgesia
Increase activity as tolerated
Transfer to telemetry
Critical care team will sign off
Assessment
-
Patient is a 75 y/o female with severe aortic stenosis, S/p SAVR, CABG and ELAA, POD # 3
Patient successfully extubated, currently saturating 96% on room air. Work of breathing normal.
Clear lung exam
Pain is controlled
Encourage incentive spirometry
Increase activity per protocol
CXR 10/03/2025 postoperative changes. No pneumothorax or collections per
Prior history of biapical pleuroparenchymal scarring and stable pulmonary nodules
Prior PFTs reviewed, unremarkable
Can add nebulizers if needed
Hemodynamics: Dobutamine discontinued 10/02/2025.
Normal renal function.
Patient to undergo PPM placement before discharge
Monitor critical I/O's
Perry/chest tube output
-
Postoperative anemia-currently stable
No evidence for excessive chest tube output
Chest tube: No airleak.
No excessive drainage
Continue to follow
Management per primary team
Advance diet as tolerated
DVT prophylaxis including SCDs
Patient has been transferred to telemetry
No additional critical care needs
Sign off
Other medical diagnoses:
- Severe Aortic stenosis
- CAD
- Pulmonary nodule, stable since 2016. Likely benign.
- Mild apical pleural-parenchymal scarring. Spirometry unremarkable without evidence of restriction or obstruction. Routine outpatient follow-up with [facility] pulmonary clinic, information added in the chart.
- H/o CVA (2022)
- HTN
Critical Care time 38 mins -- The patient is admitted for acute critical illness for the treatment of vital organ failure and/or prevention of further life-threatening conditions. Total care includes time spent in review of history, physical exam,
medications, hemodynamic/ventilator parameters, laboratory data, imaging and discussion with house staff, pharmacy, respiratory therapy, health and fitness instructor, and nursing
Data:
Spirometry 09/2025: FEV1 2.4 L, 122% of predicted, FVC 129% of predicted, FEV1/FVC of 73. Normal spirometry without evidence of obstruction or restriction.
LHC 08/2025: 1. Known severe aortic stenosis
2. Ostial and mid LAD stenoses were shown to be hemodynamically significant with the iFR serially measuring well below the ischemic threshold at 0.76, 0.76, and 0.77.
ECHO 06/2025: 1. Left ventricular ejection fraction is normal with an ejection fraction of 63 % by Valenzuela's biplane method of discs.
2. Calcified trileaflet aortic valve with decreased leaflet excursion. Severe aortic stenosis. dimensionless index of 0.2. Mean pressure gradient of 50 mmHg and aortic valve area 0.85/cm² using LVOT diameter of 2.3 cm. Trace aortic insufficiency.
3. Mild concentric left ventricular hypertrophy.
CT Chest 08/2025: Mild bilateral apical pleuroparenchymal scarring. Mild dependent atelectasis in the posterior mid to lower lungs.
Thin linear density within the inferior lingula, stable, compatible with scarring.
In the medial aspect of the right middle lobe, there is a well-defined nodular density, measuring 1.2 cm AP by 1.0 cm transverse by 1.1 cm craniocaudal. This nodule is stable dating back to CT of the chest from May 22, 2017, reassuring that it is
benign.
Subjective Dataa
Subjective Data
Date of Service:
Date of Service: October 03, 2025
Chief Complaint: Painting And Coating Worker Follow Up (Status post median sternotomy AVR and coronary artery bypass 09/30/2025)
Subjective:
She offers no major complaints
Overnight is stable without major events
Pain is controlled
Denies increased cough
Review of Systems
Cardiopulmonary: Dyspnea (n), Cough (n) and Sputum Production (n)
GI: Abdominal Pain (n) and Nausea (n)
Objective Data
Data Reviewed
Vital Signs / I&O / Oxygen:
Vital Signs
Temp Pulse Resp BP Pulse Ox
99.2 F 80 18 110/70 94
10/03/25 10:00 10/03/25 12:00 10/03/25 12:00 10/03/25 12:00 10/03/25 12:00
Intake and Output
10/02/25 10/03/25 10/04/25
06:59 06:59 06:59
Intake Total 1804.9 / 1956.8 1547.8 / 1582.8 165 / 165
Output Total 1230 / 1230 3020 / 3270 600 / 600
Balance 574.9 / 726.8 -1472.2 / -1687.2 -435 / -435
SaO2 [SIMV] 96
SaO2 94
Nasal Cannula flow liters per 2
minute
Physical Exam
General: Comfortable
HEENT: Normocephalic
Respiratory: Clear and Non-Labored Respirations
GI: Soft and Non Distended
Neurology: Awake and Alert
Skin: Warm
Labs/Micro/Reports
Lab Data
10/03/25 03:23
10/03/25 03:23
[2025-10-03] MEDS: BENADRYL 50 MG IV (12:58)
--- NOTE | 2025-10-03 13:10 | PTCARENOTE ---
Report given to coreroom foundry laborer RN; [place] removed per CTNP order; Perry removed per CTNP order; Benadryl IV and Hydrocortisone IV given for contrast allergy; CHG bath provided; Director Of Materials Management RNs at bedside and pt transported to coreroom foundry laborer via bed.
--- NOTE | 2025-10-03 15:36 | W.PN.UPDATE ---
Update Note
Progress Note Update
Returned from PPM insertion. Two atrial and one bipolar v-wire clipped to skin level.
--- NOTE | 2025-10-03 15:39 | ITS.CL.PACE ---
[facility] [employer] - Pacemaker Implant
Pacemaker Implant
Procedure Report:
PACEMAKER IMPLANT REPORT
Primary Care Provider: Dr La Montanez
Primary optical brightener maker helper: Dr Junior Frank
Date of Procedure: 10/03/25
Procedure:
Implantation of dual-chamber permanent pacemaker utilizing the left bundle branch for conduction system pacing
Indication/Diagnosis:
Non-reversible symptomatic bradycardia due to third degree atrioventricular block
HISTORY:
Persistent symptomatic complete heart block after CABG x 1 SALVADOR to LAD, #25 Inspiris AVR, E SHEA 09/30/2025
After informed consent was obtained, 'time out' was called and confirmed, the patient was prepped and draped in a sterile fashion. Lidocaine with epi was used for local anesthesia. Central venous access was obtained via subclavian venipuncture. An
incision was made along the left chest and a pre-pectoral pocket was formed. Using a Seldinger technique and peel-away sheaths, the pacing leads were placed under fluoroscopic guidance.
Fluoroscopy was used to determine likely anatomic site for left bundle branch pacing. The Medtronic C315 sheath was used to deliver the Medtronic 3830 Selectsecure pacing lead with the helix exposed just exposed from the sheath tip during continuous
monitoring when pacemapping the septum during gentle clockwise rotation to obtain a paced QRS morphology of a W pattern in lead V1. Once the suspected optimal site was identified, lead deployment was performed with several rapid rotations as paced
QRS morphology was intermittently monitored until a paced QRS complex in lead V1 demonstrated development of an R wave (qR).
Unipolar pacing impedance dropped by approximately 200 ohms suggesting it had reached the left ventricular subendocardial.
Stable VEgm injury current is present throughout final lead position including at end of case, suggesting there was no perforation through the septum into the LV cavity.
Unipolar pacing impedance is 1100 Ohms
Unipolar pacing threshold is stable at 1 V @ 0.4 ms.
Final conduction system paced QRS complex duration is 95 ms
LVAT is 53 ms and peak V5 -> peak V1 timing is 72 ms
There is QRS transition to LVSP / selective LBBP during threshold testing
Right atrial lead was placed at the RAA.
Once testing (see below) showed adequate and stable function, the leads were secured using the suture sleeves. The pocket was liberally irrigated with antibiotic solution. The leads were connected to the generator header and the leads and
generator were placed within the pocket. Fluoroscopy confirmed stable lead position. The pocket was closed in the typical fashion.
Fluoroscopy was used to guide lead placement.
IMPLANTS:
Medtronic [id number], SN: [id number], Left Pectoral
RA: Medtronic 5076-45, SN: [id number], RAA
Left Bundle: Medtronic 3830 , SN:[id number], Interventricular septum at LBB
DEVICE TESTING:
Sensing: RA 1.9 mV, RV 8 mV
Capture: RA 0.75 V@0.4ms, RV 0.9 V@0.4ms
Ohms: RA 437, RV 1121
FINAL PROGRAMMING
Abdiaziz Pacing: DDDR 70-130 ppm
COMPLICATIONS:
None
CONCLUSIONS:
1: Successful implant of dual chamber permanent pacemaker utilizing Left Bundle Branch conduction system capture for ventricular resynchronization pacing.
RECOMMENDATIONS:
1. Post-op care (tele, CXR, IV abx)
2. In-Office wound check in 5-7 days
Copy to:
Primary Care Provider: Dr La Montanez
Primary optical brightener maker helper: Dr Junior Frank
--- NOTE | 2025-10-03 15:59 | PTCARENOTE ---
Pt returned from laboratory administrative director via bed; A/V paced on monitor and VSS; CTNP at bedside and Epicardial A/V wires cut by CTNP; CT x4 removed per CRTNP order and RIJ Cordis removed per CTNP order; pt resting comfortably in bed.
--- NOTE | 2025-10-03 16:02 | CM ---
Reviewed chart. Met with Mrs. Petit to review discharge plans. She states she is feeling okay, She has a PPM placed today. She states prior to admission she resides with spouse in a one story home with one step to enter. She states prior to
admission she was independent with ambulation and adls. She states she has a single point cane and walker at home but currently not using them.. She states she has running a mile a day in the past. She states she has a prescription plan. Will
need to see her current functional level to see if she if will have any skilled care needs. Medical work-up in progress. The discharge plan is to return home with her spouse and a home visit by the Transitional Care Nurse when medically stable.
[2025-10-03] MEDS: NSS IV (16:03)
[2025-10-03] MEDS: TYLENOL PO (16:11)
[2025-10-03] MEDS: ANCEF 5 IV (20:05)
[2025-10-03] MEDS: LOPRESSOR 12.5 MG PO (20:06)
[2025-10-03] MEDS: SENOKOT 8.6 MG PO (20:06)
[2025-10-03] MEDS: MAGNESIUM OXIDE 400 MG PO (20:06)
[2025-10-03] MEDS: KCL 40 MEQ PO (20:16)
[2025-10-03] MEDS: REMOVE LIDOCAINE PATCH REMOVE (21:36)
[2025-10-03] MEDS: PACERONE 200 MG PO (21:37)
[2025-10-03] MEDS: LIPITOR 40 MG PO (21:37)
[2025-10-04] VITALS (11 sets, daily range): BP systolic 92–125; BP diastolic 53–83; PULSE 85; O2SAT 95–97; BMI 26.2
--- NOTE | 2025-10-04 | PTCARENOTE ---
assumed care of pt from previous RN. pt A&Ox4, resting in bed at time of assessment. 100% A/V paced w/ PPM. POX 97% on RA. abd s/n, +BS. pt confirms passing gas. pt due to void. see bladder scan intervention. all surgical sites stable, CDI. PIV
intact. see worklist for complete nursing assessment, interventions, VS, and I&Os.
[2025-10-04] MEDS: ANCEF 5 IV (03:23)
--- NOTE | 2025-10-04 03:30 | PTCARENOTE ---
assisted pt to bathroom. pt had a BM and stated she urinated. the urine missed the measuring hat in the toilet. pt was bladder scanned post void. see bladder scan intervention.
--- NOTE | 2025-10-04 03:45 | PTCARENOTE ---
no acute changes. VSS. AM labs collected and sent. EKG completed.
[2025-10-04 04:15] LABS: Hematocrit 26.1 % (37.0-47.0); Hemoglobin 8.8 g/dL (12.0-16.0); Mean Corp Hgb Conc. 33.7 g/dL (33.0-37.0); Mean Corpuscular Volume 92.6 fL (81.0-99.0); Platelet Count 86 10^3/uL (130-400); Red Cell Dist. Width 13.1 % (11.5-14.5)
--- NOTE | 2025-10-04 04:17 | W.PN.CT ---
Today's Communication / Plan
-
Plan:
-No major issues overnight. Hemodynamically and neurologically intact
-Weaned off Dobutamine on10/02
-Underwent PPM placement yesterday 10/03/25, site C/D/I without signs of infection, arm sling applied
-Temporary PW d/c'd yesterday
-Will resume low dose BB today given postop hypotension
-Monitor plts, 70-> 67-> 86, will cont. ASA and hold Plavix per Dr. Edmond
-Cont. current meds (ASA, Plavix, Lipitor, Protonix)
-Maintain cordis
-F/u 2-view CxR
-Encourage use of IS
-OOB into chair/Ambulate
-Likely home tomorrow
Assessment / Plan
-
Assessment;
-S/P Median sternotomy/AVR (#25 Inspiris Resilia)/CABG x 1 (NAGIE to LAD)/ELAA (35mm AtriClip), by Dr. Edmond, 09/30/25, pod#4
-Severe aortic stenosis (P/M: 84.3/50.0, GEORGINA 0.85, Trace AI)/Functional bicuspid
-Single vessel CAD (LAD)
-LVEF 55-60%
-[place]
-CVA, 2022
-Migraines
-Osteopenia
-S/p Left THR, 03/2018
-Acute intraop/postop blood loss/anemia (transfused 1u PRBC)
-Acute postop thrombocytopenia (stable without active bleed)
-Acute postop atelectasis
-Acute postop hypovolemia with subsequent hypervolemia
-Acute postop bradycardia/CHB S/P A/V paced with temporary PW S/p PPM placement, 10/03/25
-Acute postop urinary retention
-Acute postop hyponatremia
Discussed patient care with: Cardiology, Nursing, Respiratory Therapy, Pharmacy and Care Team
Subjective
Procedure
S/P Median sternotomy/AVR (#25 Inspiris Resilia)/CABG x 1 (ANGIE to LAD)/ELAA (35mm AtriClip), by Dr. Edmond, 09/30/25
-
Date of Service: October 04, 2025
Pt c/o mild incisional pain, urinary retention, otherwise feels well
Objective Data
-
Lab Results
10/04/25 03:29
PT 21.0 Sec (11.4-14.6) H 09/30/25 14:22
INR 1.80 09/30/25 14:22
APTT 31.7 Sec (23.4-35.0) 09/30/25 14:22
Vital Signs
Vital Signs
Temp Pulse Resp BP Pulse Ox
98.2 F 70 16 115/67 94
10/04/25 03:45 10/04/25 03:22 10/04/25 03:45 10/04/25 03:22 10/04/25 03:45
CT Intake/Output/Weight
10/03/25 10/03/25 10/04/25
06:59 18:59 06:59
Intake Total 715 / 1582.8 645 / 765 120 / 765
Output Total 1865 / 3270 600 / 600
Balance -1150 / -1687.2 45 / 165 120 / 165
SaO2: 94 (RA)
Physical Exam
-
General: Awake, Oriented and AOx3
Cardiovascular: Regular rate & rhythm, No Murmurs and No Gallop
Respiratory: Decreased Breath Sounds (at bases, otherwise clear)
Sternum: Stable
Incision: Clean, Dry, Intact and Dressing Intact
Extremities: Other (+trace edema)
Data Reviewed
-
Lab Results: Results Reviewed
Medications: Active Meds Reviewed
Chest X-Ray: Report Reviewed and Image Reviewed
ECG: Report Reviewed and Image Reviewed
[2025-10-04 04:27] LABS: Blood Urea Nitrogen 19 mg/dl (7-17); Calcium 7.8 mg/dl (8.4-10.2); Carbon Dioxide 26 mmol/L (22-30); Chloride 104 mmol/L (98-107); Estimated Creatinine Clearance 69 ml/min; Glucose 137 mg/dl (70-99); Magnesium 2.2 mg/dl (1.6-2.3); Potassium 4.7 mmol/L (3.5-5.1); Sodium 132 mmol/L (135-145); eGFR > 60.00
[2025-10-04] MEDS: CALCIUM GLUCONATE 100 IV (04:58)
[2025-10-04] MEDS: TYLENOL 975 MG PO ×2 (05:59→22:34)
--- NOTE | 2025-10-04 07:37 | PN.CDI ---
CDI
- -
CDI:
Physician Documentation Request
Admit Date: 09/30/25 04:58
Dear Doctor/ CVPA,
Please review the following and provide your response in the progress notes.
Current documentation includes a diagnosis of hypotension.
Clinical Indicators:
Pt admitted with CAD/ now S/P CABG /AVR/ELAA on 09/30
Progress note 10/03,' Postop bradycardia/CHB requiring AV pacing @ 80 bpm. Had no underlying rhythm (asystolic) yesterday morning, subsequently accelerated junctional and junctional @ 65 this AM
Progress note 10/04, ' Will resume low dose BB today given postop hypotension...'
Pt care note 10/01 @0830, ' ...BP 90s-100s/40s-50s. Dobutamine infusing at 3. Levo infusing at 2. CI 2.63, PA pressures 20s/10s.....'
Selected Entries
09/30/25
18:40 09/30/25
19:00 09/30/25
21:00
Blood pressure 76/52 89/59 87/62
09/30/25
21:06 10/01/25
04:00 10/01/25
06:27
Blood pressure 87/62 82/54 87/50
10/01/25
10:00 10/01/25
13:00
Blood pressure 83/55 82/57
Please clarify which of the following is the most likely etiology of the above symptoms and treatment rendered/Use of IV Levophed:
Cardiogenic shock
Hypovolemic shock
Post -op Hypotension
Other ( please specify)
Use of terms such as suspected, likely, concern for, or probable (associated with a specific diagnosis that is being evaluated, monitored, or treated as if it exists) are acceptable and can be coded in the inpatient setting, when documented at the
time of discharge.
Thank you,
Berna Johns RN
CDI Specialist
[employer]
Please use your independent medical judgment in providing your response.
[2025-10-04] MEDS: PROTONIX 40 MG PO (08:02)
[2025-10-04] MEDS: LOW STRENGTH ASPIRIN 81 MG PO (08:02)
[2025-10-04] MEDS: SENOKOT 8.6 MG PO ×2 (08:02→20:34)
[2025-10-04] MEDS: NEURONTIN 100 MG PO ×3 (08:02→22:34)
[2025-10-04] MEDS: PACERONE 200 MG PO ×3 (08:02→22:34)
[2025-10-04] MEDS: FEOSOL 325 MG PO (08:03)
[2025-10-04] MEDS: LOPRESSOR 12.5 MG PO ×2 (08:03→20:33)
[2025-10-04] MEDS: MAGNESIUM OXIDE 400 MG PO ×2 (08:03→20:33)
[2025-10-04] MEDS: LIDOCAINE 4% PATCH TOPICAL (08:03)
[2025-10-04] MEDS: VITAMIN C 500 MG PO (08:03)
[2025-10-04] MEDS: BACTROBAN 2% OINTMENT 1 APPLIC NASAL (08:03)
--- NOTE | 2025-10-04 09:07 | W.PN.CARDCBS ---
Today's Communication / Plan
-
Continue usual postop care
Continue usual post pacemaker care
Increase activity as tolerates
Impression / Plan
-
Primary Career And Guidance Counselor: Dr. Frank
Assessment:
Severe aortic stenosis, functionally bicuspid
Single-vessel CAD of LAD
Status post CABG x 1 SALVADOR to LAD, #25 Inspiris AVR, E SHEA 09/30/2025
Status post dual-chamber conduction system pacemaker 10/03/2025 for postoperative bradycardia/CHB and junctional rhythm
History of stroke
Hypertension
Hyperlipidemia
Osteopenia
History of left hip replacement 2017
Echocardiogram 06/27/2025: EF 63%, severe with mean pressure gradient 50 mmHg, GEORGINA 0.85 cm�, trace AI, mild concentric LVH
Plan:
-Status post CABG x 1 SALVADOR to LAD, #25 Inspiris AVR, E SHEA 09/30/2025
She continues to do well. Sitting in the chair.
Continue usual postop care
Platelets are being followed in addition
Increase activity as tolerates
Status post dual-chamber conduction system pacemaker 10/03/2025 for postoperative bradycardia and junctional rhythm
Postop bradycardia/CHB requiring AV pacing with junctional @ 60 bpm underneath pacer
Postprocedure sling and arm restrictions discussed
Amiodarone and beta-hugh resumed
Will continue to follow as an outpatient
-Discussed with nursing
Progress Note - Career And Guidance Counselor
Subjective
Date of Service: October 04, 2025
She is sitting in the chair without complaint. Pain is controlled.
Objective
Labs:
10/04/25 03:29
10/04/25 03:29
Labs
Hgb 8.8 g/dL (12.0-16.0) L 10/04/25 03:29
Hct 26.1 % (37.0-47.0) L 10/04/25 03:29
Plt Count 86 10^3/uL (130-400) L D 10/04/25 03:29
PT 21.0 Sec (11.4-14.6) H 09/30/25 14:22
INR 1.80 09/30/25 14:22
APTT 31.7 Sec (23.4-35.0) 09/30/25 14:22
Sodium 132 mmol/L (135-145) L 10/04/25 03:29
Potassium 4.7 mmol/L (3.5-5.1) 10/04/25 03:29
BUN 19 mg/dl (7-17) H 10/04/25 03:29
Creatinine 0.5 mg/dL (0.6-1.0) L 10/04/25 03:29
Glucose 137 mg/dl (70-99) H 10/04/25 03:29
Vital Signs and I&O:
Vital Signs
Temp Pulse Resp BP Pulse Ox
97.8 F 82 18 124/71 98
10/04/25 08:00 10/04/25 08:03 10/04/25 08:00 10/04/25 08:03 10/04/25 08:00
Vital Signs
Temp Pulse Resp BP Pulse Ox
97.8 F 82 18 124/71 98
10/04/25 08:00 10/04/25 08:03 10/04/25 08:00 10/04/25 08:03 10/04/25 08:00
Intake & Output
10/02/25 10/03/25 10/04/25 10/05/25
06:59 06:59 06:59 06:59
Intake Total 1804.9 / 1956.8 1547.8 / 1582.8 765 / 765
Output Total 1230 / 1230 3020 / 3270 800 / 800
Balance 574.9 / 726.8 -1472.2 / -1687.2 -35 / -35
Physical Exam
Physical Exam
General: Well developed, well nourished in NAD.
Heart: Non displaced PMI, RRR, no murmurs, No S3, S4,
Lungs: Coarse anterior breath sounds
Extremities: No clubbing, cyanosis or edema bilaterally. Sling is in place.
Neuro: Grossly nonfocal, awake, alert
--- NOTE | 2025-10-04 09:14 | PTCARENOTE ---
Received pt from shift production supervisor RN at 0700; pt AAOx3 and resting comfortably in chair; A/V paced 100% on monitor and VSS; PIV x2 patent; Lungs diminished with fine crackles in bases; IS to 1500; positive bowel sounds; pt voiding yellow urine; palpable
pulses throughout; trace lower extremity edema noted; all surgical sites C/D/I; see nursing documentation for further details.
[2025-10-04] MEDS: LASIX 40 MG IV (10:28)
--- NOTE | 2025-10-04 12:02 | PTCARENOTE ---
Pt ambulating hallways with RN; A-paced 100% on monitor and VSS; assessment unchanged.
[2025-10-04] MEDS: TYLENOL PO (14:07)
--- NOTE | 2025-10-04 15:08 | CM ---
Reviewed chart. Met with Mrs. Petit to review discharge plans. She states she has ambulated in the hallway today. She states her spouse is not feeling well today. She expressed concern about going home if he can not care for her. Reviewed chart.
She states she is feeling okay. Prior to admission she resides with spouse in a one story home with one step to enter. She states prior to admission she was independent with ambulation and adls. She has a single point cane and walker at home but
currently not using them.. She has been running a mile a day in the past. She has a prescription plan. Will need to see her current functional level to see if she if will have any skilled care needs. Medical work-up in progress. The discharge
plan is to return home with her spouse and a home visit by the Transitional Care Nurse when medically stable.
[2025-10-04] MEDS: NSS IV (16:07)
--- NOTE | 2025-10-04 16:10 | PTCARENOTE ---
A paced on monitor and VSS: assessment unchanged and pt resting comfortably in chair.
--- NOTE | 2025-10-04 20:00 | PTCARENOTE ---
report received from previous RN, pt transferred into room 2243. pt AAOx4, denies any pain. VSS. A paced / A/V paced 100%. +peripheral pulses. B/L breath sounds present. POX 93% on room air. IS encouraged. +BS. pt voiding CYU. trace LE edema noted.
PIV intact and patent. all surgical sites stable. sling in place to L arm. see worklist for full assessment, VS, and interventions.
[2025-10-04] MEDS: REMOVE LIDOCAINE PATCH 1 PATCH REMOVE (20:33)
[2025-10-04] MEDS: LIPITOR 40 MG PO (22:34)
[2025-10-05 03:00] VITALS: BP 97/55
--- NOTE | 2025-10-05 03:15 | PTCARENOTE ---
no changes in assessment. VSS. pt oriented, denies any pain. A.paced/AV paced, HR 60s-80s. POX 98% on room air. AM labs drawn and sent. all surgical sites stable. L arm sling remains in place. pt sleeping between care.
[2025-10-05 03:20] VITALS: BMI 26.0
[2025-10-05 03:30] LABS: Hematocrit 24.4 % (37.0-47.0); Hemoglobin 8.4 g/dL (12.0-16.0); Mean Corp Hgb Conc. 34.4 g/dL (33.0-37.0); Mean Corpuscular Volume 92.4 fL (81.0-99.0); Platelet Count 116 10^3/uL (130-400); Red Cell Dist. Width 13.2 % (11.5-14.5)
[2025-10-05 03:46] LABS: Blood Urea Nitrogen 25 mg/dl (7-17); Calcium 8.0 mg/dl (8.4-10.2); Carbon Dioxide 26 mmol/L (22-30); Chloride 104 mmol/L (98-107); Estimated Creatinine Clearance 69 ml/min; Glucose 102 mg/dl (70-99); Magnesium 1.9 mg/dl (1.6-2.3); Potassium 4.1 mmol/L (3.5-5.1); Sodium 132 mmol/L (135-145); eGFR > 60.00
--- NOTE | 2025-10-05 06:27 | W.PN.CT ---
Today's Communication / Plan
-
Plan:
-No major issues overnight. Hemodynamically and neurologically intact
-Weaned off Dobutamine on10/02
-Underwent PPM placement yesterday 10/03/25, site C/D/I without signs of infection
-Temporary PW d/c'd 10/03 after PPM
-Will resume low dose BB today given postop hypotension
-Monitor plts, 70-> 67-> 86->116, will cont. Resumed both ASA and Plavix
-Cont. current meds (ASA, Plavix, Lipitor, Protonix)
-Maintain cordis
-Encourage use of IS
-OOB into chair/Ambulate
-D/C home
Assessment / Plan
-
Assessment;
-S/P Median sternotomy/AVR (#25 Inspiris Resilia)/CABG x 1 (ANGIE to LAD)/ELAA (35mm AtriClip), by Dr. Edmond, 09/30/25, pod#5
-Severe aortic stenosis (P/M: 84.3/50.0, GEORGINA 0.85, Trace AI)/Functional bicuspid
-Single vessel CAD (LAD)
-LVEF 55-60%
-USA
-CVA, 2022
-Migraines
-Osteopenia
-S/p Left THR, 03/2018
-Acute intraop/postop blood loss/anemia (transfused 1u PRBC)
-Acute postop thrombocytopenia (stable without active bleed)
-Acute postop atelectasis
-Acute postop hypovolemia with subsequent hypervolemia
-Acute postop bradycardia/CHB S/P A/V paced with temporary PW S/p PPM placement, 10/03/25
-Acute postop urinary retention
-Acute postop hyponatremia
-Acute postop hypotension
Discussed patient care with: Cardiology, Nursing, Respiratory Therapy, Pharmacy and Care Team
Subjective
Procedure
S/P Median sternotomy/AVR (#25 Inspiris Resilia)/CABG x 1 (ANGIE to LAD)/ELAA (35mm AtriClip), by Dr. Edmond, 09/30/25
-
Date of Service: October 05, 2025
Pt c/o mild incisional pain, otherwise feels well
Objective Data
-
Lab Results
10/05/25 03:07
10/05/25 03:07
PT 21.0 Sec (11.4-14.6) H 09/30/25 14:22
INR 1.80 09/30/25 14:22
APTT 31.7 Sec (23.4-35.0) 09/30/25 14:22
Vital Signs
Vital Signs
Temp Pulse Resp BP Pulse Ox
97.9 F 70 18 97/55 98
10/05/25 03:00 10/05/25 03:00 10/05/25 03:00 10/05/25 03:00 10/05/25 03:00
CT Intake/Output/Weight
10/04/25 10/04/25 10/05/25
06:59 18:59 06:59
Intake Total 120 / 765 480 / 480
Output Total 200 / 800 575 / 575
Balance -80 / -35 -95 / -95
SaO2: 98
Physical Exam
-
General: Awake, Oriented and AOx3
Cardiovascular: Regular rate & rhythm, No Murmurs, No Rub and No Gallop
Respiratory: Decreased Breath Sounds (at bases, otherwise clear)
Sternum: Stable
Incision: Clean, Dry, Intact and Dressing Intact
Extremities: Other (+trace edema)
Data Reviewed
-
Lab Results: Results Reviewed
Medications: Active Meds Reviewed
Chest X-Ray: Report Reviewed and Image Reviewed
ECG: Report Reviewed and Image Reviewed
[2025-10-05] MEDS: CALCIUM GLUCONATE 130 MG IV (06:39)
[2025-10-05] MEDS: TYLENOL PO (06:39)
[2025-10-05 09:30] VITALS: BP 112/57
[2025-10-05] MEDS: TOPROL XL 12.5 MG PO (09:46)
[2025-10-05] MEDS: PROTONIX 40 MG PO (09:46)
[2025-10-05] MEDS: LASIX 40 MG PO (09:47)
[2025-10-05] MEDS: PACERONE 200 MG PO (09:47)
[2025-10-05] MEDS: NEURONTIN 100 MG PO (09:47)
[2025-10-05] MEDS: MAGNESIUM OXIDE 400 MG PO (09:47)
[2025-10-05] MEDS: FEOSOL 325 MG PO (09:47)
[2025-10-05] MEDS: LIDOCAINE 4% PATCH TOPICAL (09:48)
[2025-10-05] MEDS: PLAVIX 75 MG PO (09:48)
[2025-10-05] MEDS: LOW STRENGTH ASPIRIN 81 MG PO (09:48)
[2025-10-05] MEDS: SENOKOT PO (09:49)
[2025-10-05] MEDS: VITAMIN C 500 MG PO (09:49)
[2025-10-05] MEDS: TYLENOL 975 MG PO (09:50)
--- NOTE | 2025-10-05 10:36 | W.PN.CARDCBS ---
Today's Communication / Plan
-
Would consider sending her home on low-dose Lasix as a standing dose, something is dose 20 mg daily for 1 week and then can go back to her outpatient as needed dosing schedule
Impression / Plan
-
Primary Dye Machine Operator: Dr. Frank
Assessment:
Severe aortic stenosis, functionally bicuspid
Single-vessel CAD of LAD
Status post CABG x 1 SALVADOR to LAD, #25 Inspiris AVR, E SHEA 09/30/2025
Status post dual-chamber conduction system pacemaker 10/03/2025 for postoperative bradycardia/CHB and junctional rhythm
History of stroke
Hypertension
Hyperlipidemia
Osteopenia
History of left hip replacement 2018
Echocardiogram 06/27/2025: EF 63%, severe with mean pressure gradient 50 mmHg, GEORGINA 0.85 cm�, trace AI, mild concentric LVH
Plan:
-Status post CABG x 1 SALVADOR to LAD, #25 Inspiris AVR, E SHEA 09/30/2025
She continues to do well. Sitting in the chair.
Continue usual postop care
Platelets are being followed in addition
Increase activity as tolerates
Status post dual-chamber conduction system pacemaker 10/03/2025 for postoperative bradycardia and junctional rhythm
Postop bradycardia/CHB requiring AV pacing with junctional @ 60 bpm underneath pacer
Postprocedure sling and arm restrictions discussed
Amiodarone and beta-hugh resumed
Will continue to follow as an outpatient.
Postop volume overload, With weight up approximately 12 pounds since admission.
Would favor sending her home on a standing low dose of diuretics X 1 week, then back to her PRN diuretic dosing.
Previously she was on a as needed dose of Lasix.
Possibly something as low as Lasix 20 mg daily with outpatient labs next week to check renal function and electrolytes.
-Discussed with nursing
Progress Note - Dye Machine Operator
Subjective
Date of Service: October 05, 2025
No chest pain shortness of breath palpitations or dizziness. She does complain of feeling puffy
Objective
Labs:
10/05/25 03:07
10/05/25 03:07
Labs
Hgb 8.4 g/dL (12.0-16.0) L 10/05/25 03:07
Hct 24.4 % (37.0-47.0) L 10/05/25 03:07
Plt Count 116 10^3/uL (130-400) L D 10/05/25 03:07
PT 21.0 Sec (11.4-14.6) H 09/30/25 14:22
INR 1.80 09/30/25 14:22
APTT 31.7 Sec (23.4-35.0) 09/30/25 14:22
Sodium 132 mmol/L (135-145) L 10/05/25 03:07
Potassium 4.1 mmol/L (3.5-5.1) 10/05/25 03:07
BUN 25 mg/dl (7-17) H 10/05/25 03:07
Creatinine 0.6 mg/dL (0.6-1.0) 10/05/25 03:07
Glucose 102 mg/dl (70-99) H 10/05/25 03:07
Vital Signs and I&O:
Vital Signs
Temp Pulse Resp BP Pulse Ox
97.7 F 78 18 112/57 98
10/05/25 08:00 10/05/25 09:46 10/05/25 08:00 10/05/25 09:46 10/05/25 09:39
Vital Signs
Temp Pulse Resp BP Pulse Ox
97.7 F 78 18 112/57 98
10/05/25 08:00 10/05/25 09:46 10/05/25 08:00 10/05/25 09:46 10/05/25 09:39
Intake & Output
12/2210/04/25 10/05/25 10/06/25
06:59 06:59 06:59 06:59
Intake Total 1547.8 / 1582.8 765 / 765 480 / 480 240 / 240
Output Total 3020 / 3270 800 / 800 575 / 575
Balance -1472.2 / -1687.2 -35 / -35 -95 / -95 240 / 240
Physical Exam
Physical Exam
General: Well developed, well nourished in NAD.
Heart: Non displaced PMI, RRR, no murmurs, No S3, S4,
Dressings on chest, sternal as well as pacemaker site are both clean and dry
Lungs: Coarse anterior breath sounds
Extremities: No clubbing, cyanosis or edema bilaterally. Sling is in place.
Neuro: Grossly nonfocal, awake, alert
[2025-10-05 11:34] VITALS: BP 118/61
--- NOTE | 2025-10-05 13:03 | W.DCSUMMARY ---
Discharge Summary
Discharge Data
Date of Admission: 09/30/25
Date of Discharge: 10/05/25
Total time spent discharging patient (in min): 50
-
Pending Results: No
Hospital Course
Primary care physician:
Dr. La Almendarez
Outpatient maid housekeeper:
Dr. Frank
Inpatient consultants:
[facility], crm solution architect
Procedures:
1. Median sternotomy/AVR (#25 Inspiris Resilia)/CABG x 1 (ANGIE to LAD)/ELAA (35mm AtriClip), by Dr. Edmond, 09/30/25
Primary Diagnosis:
1. Severe aortic stenosis (P/M: 84.3/50.0, GEORGINA 0.85, Trace AI)/Functional bicuspid
Secondary Diagnoses:
-Single vessel CAD (LAD)
-Acute intraop/postop blood loss/anemia (transfused 1u PRBC)
-Acute postop thrombocytopenia (stable without active bleed)
-Acute postop atelectasis
-Acute postop hypovolemia with subsequent hypervolemia
-Acute postop bradycardia/CHB S/P A/V paced with temporary PW S/p PPM placement, 10/03/25
-Acute postop urinary retention
-Acute postop hyponatremia
-Acute postop hypotension
HPI: 75 year old female was electively admitted for AVR, CABG due to functionally bicuspid aortic valve, single vessel coronary disease
Hospital course: Patient was electively admitted on 09/30 for a AVR and CABG with Dr. Edmond. Postoperatively she returned to the CVICU on dobutamine, Levophed, Precedex, and insulin infusions. Rhythm was in complete heart block therefore AMV
wires were placed in the OR and she was on 100% AV paced at 70 bpm. She received a total of 1 L of lactated Ringer's Precedex was weaned off and extubated by 8 PM. On 10/01 postoperative day 1 patient remained on dobutamine and Levophed. She was
transitioned off her insulin infusion. She remained at 100% AV paced. On 10/02 postoperative day 2, aspirin was placed on hold due to thrombocytopenia. Patient had a slight rhythm return when getting out of bed however then required on 100%
pacing at 58 bpm. With the lower heart rate patient's blood pressure decreased and backup rate was increased to 80 bpm. Dobutamine was weaned off as well as Levophed. On 10/03 postoperative day 3, patient received a permanent pacemaker by
[employer]. Epicardial wires were cut at the skin chest tubes and Cordis was removed. She was diuresed with Lasix. On 10/04 postoperative day 4 patient's aspirin and Plavix were resumed because platelets were recovering. On 10/05 postoperative
day 5 patient was started on an oral diuresis regimen. She was deemed stable for discharge home and prescriptions were sent to her preferred pharmacy.
Home medication changes:
see below
Discharge Plan
-
Patient Disposition: Home (Routine Discharge)
Discharge Diagnosis/Procedures: Aortic valve replacement , CABG x 1 , left atrial appendage clip (09/30); Pacemaker implant (10/03)
Condition: Good
Diet: 2 Gram Sodium
Activity: No strenuous activity
Driving Restrictions: Not until seen by your Dr
Bathing Restrictions: OK to Shower
Blood Work: BMP in 1 week
Other Services: Cardiac Rehab
Specialty Instructions: Weigh Daily- Call MD for wt gain/loss 3 lbs overnight/5 lbs in 1 week
Activity Restrictions/Additional Instructions:
ACTIVITY:
-No strenuous activity: no heavy lifting, pushing, pulling anything over 15 pounds for one month
-continue to use stairs as tolerated
DRIVING RESTRICTIONS:
-No driving for one month or until approved by your surgeon
WOUND CARE:
-Shower daily. Use soap & water.
-No lotions, creams or powders on incision area.
DIET:
-continue a low fat/low cholesterol diet.
-IF you are diabetic, continue carb controlled diet.
CARDIAC REHAB:
-Please make appointment to start in 5-6 weeks with your local hospital program. (See Cardiac Rehabilitation Discharge Booklet).
SPECIALTY INSTRUCTIONS:
-Weigh yourself daily. Call your physician for any weight gain/loss of 3 lbs overnight or 5 lbs in one week.
-REPORT any clicking noise or uneven appearance of your sternum to your surgeon immediately.
-If you smoke, you are instructed to quit. The [place] smoking hotline phone number is [phone]
Stand Alone Forms: DC Inst - Implanted Device
Referrals:
[facility]- [facility] [Provider Group] - 10/10/25 10:00 am
Referral Note: Post device incision check appointment
CT Transitional Care Nurse [Outside]
Referral Note:
The Cardiothoracic Transitional Care Nurse will call you to set up a visit in 1-2 days.
[facility] [Outside] - 11/04/25 1:00 pm
Referral Note: Cardiac Rehab Orientation and� First Exercise appointment is on _11/04/25 at 1:00 pm.___
The Cardiac Rehab gym is located on the first floor of the [facility].
Rusty Feliciano MD [Active, Pulmonary Medicine] - in six weeks
La Almendarez PA-C [Family Provider, Internal Medicine]
Nicolasa Barakat PA-C [Specified Professional Personl, Cardiology] - 11/16/25 11:20 am
Michael Edmond MD [Active, Cardiac Surgery] - 11/01/25 1:30 pm
Additional Discharge Medication Instructions: Please take your lasix 40mg twice a day for 3 days and then 40mg daily for a total of 10 days. After this course you can go back to PRN dosing of your lasix.
Prescriptions:
New
acetaminophen 325 mg Tablet
650 mg PO Q4HPRN PRN (Reason: mild pain,headache,temp >101F ) Qty: 0 0RF
atorvastatin 40 mg Tablet
40 mg PO HS Qty: 30 2RF
clopidogrel 75 mg Tablet
75 mg PO DAILY Qty: 30 2RF
cyclobenzaprine 10 mg Tablet
5 mg PO Q8HPRN PRN (Reason: muscle spasm) Qty: 15 0RF
furosemide 40 mg Tablet
40 mg PO BID Qty: 30 0RF
metoprolol succinate 25 mg Tablet Extended Release 24 Hr
12.5 mg PO BID Qty: 60 1RF
oxycodone 5 mg Tablet
2.5 mg PO Q4HPRN PRN (Reason: moderate to severe pain) Qty: 7 0RF
potassium chloride [Klor-Con M20] 20 mEq tablet,ER particles/crystals
40 meq PO DAILY Qty: 60 0RF
Continued
aspirin 81 mg Tablet,Chewable
81 mg PO DAILY Qty: 30 1RF
Discontinued
atorvastatin 20 mg Tablet
20 mg PO QPM Qty: 30 1RF
furosemide 20 mg Tablet
20 mg PO .PRN/20MG-40MG DAILY PRN (Reason: EDEMA/FLUID RETENTION)
Rx Instructions:
PER PT TAKING 20MG-40MG PRN DAILY;
Discharge Orders:
Discharge Patient (As Directed); Ordered 10/05/25
Ordered By: Yanira Daniel
Care Plan Goals
Care Plan Goals:
Problem: Readiness for enhanced knowledge related to diagnosis and treatment plan
Goal: Understand your diagnosis and treatment plan needs, including medications if applicable.
Instructions: Know your diagnosis, underlying causes and treatment plan options, including medications if applicable. Consult with your health care team to learn about your diagnosis and treatment plan, including medications if applicable.
Discharge Date and Time
Print Language: TRISTANIAN
--- NOTE | 2025-10-05 15:40 | PTCARENOTE ---
Pt reports minimal incisional discomfort in left pacemaker site relieved with tylenol. Pt walking in halls without problem. Pt assisted to shower, no problems. Pt seen by . Telemetry and IV device removed. Discharge instructions reviewed
with pt and her regarding activity and driving restrictions, wound care, pain management, medications and their possible side effects, reporting cares and concerns and follow up appt's. Very good understanding verbalized. Pt escorted out via
wheelchair and discharged to home.
== END 2025-10-05 14:10 | disposition home or self-care (01) | DRG 219 ==
LOC: IVU 04:58
PROVIDERS: Anesthesiology; Clinical Nurse Specialist Acute Care; Internal Medicine Cardiovascular Disease; Nurse Practitioner; ADMITTING PHYSICIAN Thoracic Surgery (Cardiothoracic Vascular Surgery); CONSULT PHYSICIAN Internal Medicine; FAMILY PHYSICIAN Physician Assistant
PROC: B24BZZ4 Ultrasonography of Heart with Aorta, Transesophageal (ICD-10-PCS; 2025-09-30)
PROC: 02RF0JZ Replacement of Aortic Valve with Synthetic Substitute, Open Approach (ICD-10-PCS; 2025-09-30)
PROC: 02100A3 Bypass Coronary Artery, One Artery from Coronary Artery with Autologous Arterial Tissue, Open Approach (ICD-10-PCS; 2025-09-30)
PROC: 30233N1 Transfusion of Nonautologous Red Blood Cells into Peripheral Vein, Percutaneous Approach (ICD-10-PCS; 2025-09-30)
PROC: 02L70CK Occlusion of Left Atrial Appendage with Extraluminal Device, Open Approach (ICD-10-PCS; 2025-09-30)
PROC: 0JH606Z Insertion of Pacemaker, Dual Chamber into Chest Subcutaneous Tissue and Fascia, Open Approach (ICD-10-PCS; 2025-10-03)
PROC: 02H63JZ Insertion of Pacemaker Lead into Right Atrium, Percutaneous Approach (ICD-10-PCS; 2025-10-03)
PROC: 02HK3JZ Insertion of Pacemaker Lead into Right Ventricle, Percutaneous Approach (ICD-10-PCS; 2025-10-03)
DX: I35.0 Nonrheumatic aortic (valve) stenosis (principal); I46.9 Cardiac arrest, cause unspecified; D62 Acute posthemorrhagic anemia; I44.2 Atrioventricular block, complete; J98.11 Atelectasis; E87.1 Hypo-osmolality and hyponatremia; I25.10 Atherosclerotic heart disease of native coronary artery without angina pectoris; D69.59 Other secondary thrombocytopenia; E86.1 Hypovolemia; E87.70 Fluid overload, unspecified; R33.9 Retention of urine, unspecified; I95.81 Postprocedural hypotension; Q23.81 Bicuspid aortic valve; Z96.642 Presence of left artificial hip joint; Z82.3 Family history of stroke; Z86.73 Personal history of transient ischemic attack (TIA), and cerebral infarction without residual deficits
CPT/HCPCS: 33208; 36415; 71045; 71046; 80048; 80053; 81003; 81015; 82248; 82330; 82565; 82805; 82810; 82947; 82962; 83036; 83735; 84132; 84302; 84520; 85014; 85018; 85025; 85027; 85049; 85610; 85730; 86850; 86900; 86901; 86920; 87070; 88305; 88311; 93005; 93312; 93320; 93325; 93880; 94002; 94010; C1769; J1250; P9016; P9047